=== PATIENT | male | born 1935 | race Two or more races ===

== ENCOUNTER 2016-10-06 06:38 | Inpatient (IN) | payer MEDICARE, MEDICAID ==
[~2016-10-06] VITALS: Ht 162.6 cm; Wt 66.7 kg
[2016-10-06] VITALS (26 sets, daily range): BP systolic 105–138; BP diastolic 56–92
[2016-10-06] MEDS ORDERED: methylPREDNISolone SOD SUCC 125 MG/2ML VIAL ONE (06:39)
[2016-10-06] MEDS ORDERED: IPRATROPIUM NEB FS 0.5 MG/2.5 ML AMPUL.NEB ONE (06:53)
[2016-10-06] MEDS ORDERED: ALBUTEROL FS 2.5 MG/3 ML VIAL.NEB ONE (06:53)
[2016-10-06] MEDS ORDERED: methylPREDNISolone SOD SUCC 125 MG/2ML VIAL IV ONE (07:00)
[2016-10-06] MEDS ORDERED: ALBUTEROL FS 2.5 MG/3 ML VIAL.NEB NEB ONE (07:00)
[2016-10-06] MEDS ORDERED: IPRATROPIUM NEB FS 0.5 MG/2.5 ML AMPUL.NEB NEB ONE (07:00)
[2016-10-06 07:09] LABS: BASOPHILS % (AUTO) 0.1 % (0.0-2.0); DIFF TOTAL % 100 %; EOSINOPHILS # (AUTO) 0.1 /CMM (0.0-0.7); EOSINOPHILS % (AUTO) 0.9 % (0.0-6.0); HEMATOCRIT 36 % (39-51); HEMOGLOBIN 11.7 g/dL (13.5-17.5); LYMPHOCYTES # (AUTO) 2.3 /CMM (0.8-4.8); LYMPHOCYTES % (AUTO) 17.2 % (20.0-44.0); MEAN CORPUSCULAR HEMOGLOBIN 26 PG (26.0-33.0); MEAN CORPUSCULAR HGB CONC 33 g/dl (31.0-36.0); MEAN CORPUSCULAR VOLUME 81 fL (80-96); MONOCYTES # (AUTO) 0.3 /CMM (0.1-1.30); MONOCYTES % (AUTO) 2.4 % (2.0-12.0); NEUTROPHILS # (AUTO) 10.5 /CMM (1.8-8.9); NEUTROPHILS % (AUTO) 79.4 % (43.0-81.0); PLATELET COUNT (AUTO) 229 /CMM (150-450); RED BLOOD CELL COUNT(AUTO) 4.45 MIL/uL (4.5-6.0); WHITE BLOOD COUNT (AUTO) 13.3 K/uL (4.3-11.0)
[2016-10-06 07:24] LABS: CALCIUM, SERUM 9.3 mg/dL (8.5-10.1); CREATININE 1.3 mg/dL (0.6-1.3); POTASSIUM 4.1 mmol/L (3.5-5.1)
[2016-10-06 07:29] LABS: INR 0.99 (0.87-1.13); PROTHROMBIN TIME 10.7 SECS (9.5-12.7)
[2016-10-06 07:40] LABS: ALBUMIN 3.6 g/dL (3.4-5.0); BILIRUBIN,DIRECT 0.2 mg/dL (0.0-0.2); BILIRUBIN,TOTAL 0.9 mg/dL (0.2-1.0); INDIRECT BILIRUBIN 0.7 mg/dL (0.0-1.1); TOTAL PROTEIN, SERUM 8.8 g/dL (6.4-8.2)
[2016-10-06 07:46] LABS: TROPONIN I 0.195 ng/mL (0.00-0.056)
[2016-10-06 08:24] LABS: LACTIC ACID 2.5 mmol/L (0.4-2.0)
[2016-10-06] MEDS ORDERED: CLOP75TA2 PO (08:24)
[2016-10-06] MEDS ORDERED: CARV6.252 PO (08:24)
[2016-10-06] MEDS ORDERED: TRAM50TA2 PO (08:24)
[2016-10-06] MEDS ORDERED: SIMV40TA5 PO (08:24)
[2016-10-06] MEDS ORDERED: FURO40TA5 PO (08:24)
[2016-10-06] MEDS ORDERED: METF500T4 PO (08:24)
[2016-10-06] MEDS ORDERED: LISI-603 PO (08:24)
[2016-10-06] MEDS ORDERED: LATA2.5D7 EACHEYE (08:24)
[2016-10-06] MEDS ORDERED: ASPI-991 PO (08:24)
[2016-10-06] MEDS ORDERED: LEVO88TA5 PO (08:24)
[2016-10-06] MEDS ORDERED: POTA8TAB8 PO (08:24)
[2016-10-06] MEDS ORDERED: CEFTRIAXONE 1GM BAG (ER ONLY) 50 ML IV ONE ×2 (08:30→08:56)
[2016-10-06] MEDS ORDERED: IOHEXOL-350 100 ML VIAL IV ONE (08:37)
[2016-10-06 08:40] LABS: *LACTIC ACID REFLEX FLAG YES
[2016-10-06] MEDS ORDERED: IV SET PRIMARY PUMP SET 1 EA INFUS.SET MC ONE (08:56)
[2016-10-06] MEDS ORDERED: ASPIRIN 325 MG TABLET ONE (09:24)
[2016-10-06] MEDS: AZITHROMYCIN 500 MG in IV D5W 250 ML IV ONE ×2 (09:25→09:30)
[2016-10-06] MEDS ORDERED: ASPIRIN 325 MG TABLET PO SCH (09:30)
[2016-10-06] MEDS ORDERED: ACETAMINOPHEN 325 MG TABLET PO PRN (12:00)
[2016-10-06] MEDS ORDERED: ONDANSETRON HCL/PF 4 MG/2 ML VIAL IVP PRN (12:00)
[2016-10-06] MEDS ORDERED: Z GUARD REMEDY 2 OZ OINT TP PRN (12:00)
[2016-10-06] MEDS: FUROSEMIDE 20 MG/2 ML VIAL IV ONE ×2 (12:00→12:35)
[2016-10-06] MEDS ORDERED: MAGNESIUM HYDROXIDE 30 ML UDC PO PRN (12:00)
[2016-10-06] MEDS ORDERED: MAG HYDROX/AL HYDROX/SIMETH 30 ML UDC PO PRN (12:00)
[2016-10-06] MEDS ORDERED: HYDROCODONE/APAP 5/325MG 1 EACH TABLET PO PRN (12:00)
[2016-10-06] MEDS ORDERED: TRAMADOL HCL 50 MG TABLET PO PRN (12:30)
[2016-10-06] MEDS ORDERED: DEXTROSE 50%-WATER 50 ML DISP.SYRIN IV PRN (13:00)
[2016-10-06] MEDS: FUROSEMIDE 20 MG/2 ML VIAL IV SCH (17:30)
[2016-10-06] MEDS: CARVEDILOL 6.25 MG TABLET PO SCH (17:31)
[2016-10-06] MEDS: BLOOD SUGAR DIAGNOSTIC 1 EACH STRIP VI SCH ×2 (17:31→21:02)
[2016-10-06] MEDS: *INSULIN REGULAR(HUMULIN R)HUM 100 UNIT/ML VIAL SQ PRN ×2 (17:40→21:11)
[2016-10-06] MEDS: INSULIN REGULAR, HUMAN 100 UNIT/ML 3 ML VIAL SQ PRN (19:03)
[2016-10-06] MEDS: SIMVASTATIN 40 MG TABLET PO SCH (21:02)
[2016-10-06] MEDS: ZOLPIDEM TARTRATE 5 MG TABLET PO PRN (21:02)
[2016-10-06] MEDS: LATANOPROST EYE DROP 0.005% 2.5 ML BOTTLE EACHEYE SCH (21:02)
[2016-10-06] MEDS ORDERED: INSULIN REGULAR, HUMAN 100 UNIT/ML 10 ML VIAL SQ ONE (21:30)
[2016-10-07] VITALS (15 sets, daily range): BP systolic 103–132; BP diastolic 52–76
[2016-10-07 05:12] LABS: BASOPHILS % (AUTO) 0.2 % (0.0-2.0); DIFF TOTAL % 100 %; HEMATOCRIT 30 % (39-51); HEMOGLOBIN 9.8 g/dL (13.5-17.5); LYMPHOCYTES % (AUTO) 13.9 % (20.0-44.0); MEAN CORPUSCULAR HEMOGLOBIN 27 PG (26.0-33.0); MEAN CORPUSCULAR HGB CONC 33 g/dl (31.0-36.0); MEAN CORPUSCULAR VOLUME 80 fL (80-96); MONOCYTES # (AUTO) 0.2 /CMM (0.1-1.30); MONOCYTES % (AUTO) 2.7 % (2.0-12.0); NEUTROPHILS # (AUTO) 6.2 /CMM (1.8-8.9); NEUTROPHILS % (AUTO) 83.2 % (43.0-81.0); PLATELET COUNT (AUTO) 198 /CMM (150-450); RED BLOOD CELL COUNT(AUTO) 3.68 MIL/uL (4.5-6.0); WHITE BLOOD COUNT (AUTO) 7.5 K/uL (4.3-11.0)
[2016-10-07 05:25] LABS: CALCIUM, SERUM 8.7 mg/dL (8.5-10.1); CREATININE 1.6 mg/dL (0.6-1.3); PHOSPHORUS 3.1 mg/dL (2.5-4.9); POTASSIUM 3.8 mmol/L (3.5-5.1)
[2016-10-07] MEDS: BLOOD SUGAR DIAGNOSTIC 1 EACH STRIP VI SCH ×4 (06:49→21:31)
[2016-10-07] MEDS: CARVEDILOL 6.25 MG TABLET PO SCH ×3 (08:19→16:26)
[2016-10-07] MEDS: LISINOPRIL (20MG) 20 MG TABLET PO SCH ×2 (08:19→08:26)
[2016-10-07] MEDS: POTASSIUM CHLORIDE 10 MEQ TABLET.SA PO SCH (08:25)
[2016-10-07] MEDS: FUROSEMIDE 20 MG/2 ML VIAL IV SCH ×2 (08:25→16:26)
[2016-10-07] MEDS: ASPIRIN EC 81 MG TABLET.DR PO SCH (08:25)
[2016-10-07] MEDS: LEVOTHYROXINE SODIUM 88 MCG TABLET PO SCH (08:26)
[2016-10-07] MEDS: INSULIN REGULAR, HUMAN 100 UNIT/ML 3 ML VIAL SQ PRN ×3 (08:29→17:09)
[2016-10-07] MEDS ORDERED: CLOPIDOGREL BISULFATE 75 MG TABLET PO SCH (09:00)
[2016-10-07] MEDS ORDERED: Medication Not On Formulary EA (Potassium Chloride 8 MEQ) PO SCH (09:00)
[2016-10-07] MEDS ORDERED: HEPARIN INFUSION/D5W 500 ML IV PRN (12:30)
[2016-10-07] MEDS ORDERED: IV SET PRIMARY PUMP SET 1 EA INFUS.SET MC ONE (12:32)
[2016-10-07] MEDS ORDERED: HEPARIN SODIUM, PORCINE 5000 UNITS/1 ML VIAL IV ONE ×2 (13:00→23:00)
[2016-10-07] MEDS: TICAGRELOR 90 MG TABLET PO SCH (16:26)
[2016-10-07] MEDS: SIMVASTATIN 40 MG TABLET PO SCH (21:30)
[2016-10-07] MEDS: ZOLPIDEM TARTRATE 5 MG TABLET PO PRN (21:31)
[2016-10-07] MEDS: *INSULIN REGULAR(HUMULIN R)HUM 100 UNIT/ML VIAL SQ PRN (21:31)
[2016-10-07] MEDS: LATANOPROST EYE DROP 0.005% 2.5 ML BOTTLE EACHEYE SCH (21:32)
[2016-10-07] MEDS ORDERED: HEPARIN SODIUM, PORCINE 5000 UNITS/1 ML VIAL ONE (23:02)
[2016-10-08] VITALS: BP 125/72
[2016-10-08 04:00] VITALS: BP 135/75
[2016-10-08 05:52] LABS: BASOPHILS % (AUTO) 0.6 % (0.0-2.0); DIFF TOTAL % 100 %; EOSINOPHILS # (AUTO) 0.1 /CMM (0.0-0.7); HEMATOCRIT 29 % (39-51); HEMOGLOBIN 9.7 g/dL (13.5-17.5); LYMPHOCYTES % (AUTO) 24.7 % (20.0-44.0); MEAN CORPUSCULAR HEMOGLOBIN 26 PG (26.0-33.0); MEAN CORPUSCULAR HGB CONC 33 g/dl (31.0-36.0); MEAN CORPUSCULAR VOLUME 80 fL (80-96); MONOCYTES # (AUTO) 0.5 /CMM (0.1-1.30); MONOCYTES % (AUTO) 5.7 % (2.0-12.0); NEUTROPHILS # (AUTO) 5.5 /CMM (1.8-8.9); PLATELET COUNT (AUTO) 207 /CMM (150-450); RED BLOOD CELL COUNT(AUTO) 3.69 MIL/uL (4.5-6.0); WHITE BLOOD COUNT (AUTO) 8.1 K/uL (4.3-11.0)
[2016-10-08 05:58] LABS: CALCIUM, SERUM 8.4 mg/dL (8.5-10.1); CREATININE 1.3 mg/dL (0.6-1.3); POTASSIUM 3.1 mmol/L (3.5-5.1)
[2016-10-08 08:00] VITALS: BP 135/71
[2016-10-08] MEDS: TICAGRELOR 90 MG TABLET PO SCH ×2 (09:28→16:42)
[2016-10-08] MEDS: POTASSIUM CHLORIDE 10 MEQ TABLET.SA PO SCH (09:29)
[2016-10-08] MEDS: LEVOTHYROXINE SODIUM 88 MCG TABLET PO SCH (09:29)
[2016-10-08] MEDS: ASPIRIN EC 81 MG TABLET.DR PO SCH (09:29)
[2016-10-08] MEDS: LISINOPRIL (20MG) 20 MG TABLET PO SCH (09:30)
[2016-10-08] MEDS: CARVEDILOL 6.25 MG TABLET PO SCH ×2 (09:31→16:41)
[2016-10-08] MEDS: BLOOD SUGAR DIAGNOSTIC 1 EACH STRIP VI SCH ×4 (09:32→21:46)
[2016-10-08] MEDS: FUROSEMIDE 20 MG/2 ML VIAL IV SCH ×2 (09:32→16:35)
[2016-10-08] MEDS: INSULIN REGULAR, HUMAN 100 UNIT/ML 3 ML VIAL SQ PRN ×2 (09:36→13:02)
[2016-10-08 12:00] VITALS: BP 132/75
[2016-10-08] MEDS ORDERED: HEPARIN INFUSION/D5W 500 ML IV PRN (14:30)
[2016-10-08] MEDS ORDERED: IV SET PRIMARY PUMP SET 1 EA INFUS.SET MC ONE (14:41)
[2016-10-08 16:00] VITALS: BP 134/72
[2016-10-08] MEDS ORDERED: POTASSIUM CHLORIDE 20 MEQ TAB.PRT.SR PO ONE (17:00)
[2016-10-08 20:00] VITALS: BP 143/80
[2016-10-08] MEDS ORDERED: ENOXAPARIN SODIUM 40 MG/0.4 ML DISP.SYRIN SQ SCH (21:00)
[2016-10-08] MEDS: LATANOPROST EYE DROP 0.005% 2.5 ML BOTTLE EACHEYE SCH (21:43)
[2016-10-08] MEDS: *INSULIN REGULAR(HUMULIN R)HUM 100 UNIT/ML VIAL SQ PRN (21:48)
[2016-10-08] MEDS: SIMVASTATIN 40 MG TABLET PO SCH (21:49)
[2016-10-08 23:24] LABS: PROTHROMBIN TIME 10.5 SECS (9.5-12.7)
[2016-10-08] MEDS ORDERED: HEPARIN SODIUM, PORCINE 5000 UNITS/1 ML VIAL ONE (23:47)
[2016-10-09] VITALS: BP 144/68
[2016-10-09] MEDS ORDERED: HEPARIN SODIUM, PORCINE 5000 UNITS/1 ML VIAL IV ONE
[2016-10-09 04:00] VITALS: BP 147/70
[2016-10-09 06:11] LABS: BASOPHILS % (AUTO) 0.3 % (0.0-2.0); DIFF TOTAL % 100 %; EOSINOPHILS # (AUTO) 0.2 /CMM (0.0-0.7); EOSINOPHILS % (AUTO) 2.9 % (0.0-6.0); HEMATOCRIT 33 % (39-51); LYMPHOCYTES % (AUTO) 36.7 % (20.0-44.0); MEAN CORPUSCULAR HEMOGLOBIN 26 PG (26.0-33.0); MEAN CORPUSCULAR HGB CONC 33 g/dl (31.0-36.0); MEAN CORPUSCULAR VOLUME 80 fL (80-96); MONOCYTES # (AUTO) 0.3 /CMM (0.1-1.30); MONOCYTES % (AUTO) 6.4 % (2.0-12.0); NEUTROPHILS # (AUTO) 2.9 /CMM (1.8-8.9); NEUTROPHILS % (AUTO) 53.7 % (43.0-81.0); PLATELET COUNT (AUTO) 242 /CMM (150-450); RED BLOOD CELL COUNT(AUTO) 4.15 MIL/uL (4.5-6.0); WHITE BLOOD COUNT (AUTO) 5.3 K/uL (4.3-11.0)
[2016-10-09] MEDS: BLOOD SUGAR DIAGNOSTIC 1 EACH STRIP VI SCH ×4 (06:54→21:06)
[2016-10-09] MEDS: INSULIN REGULAR, HUMAN 100 UNIT/ML 3 ML VIAL SQ PRN ×3 (06:56→17:24)
[2016-10-09 07:09] LABS: TROPONIN I 2.16 ng/mL (0.00-0.056)
[2016-10-09 07:15] LABS: ALBUMIN 3.1 g/dL (3.4-5.0); BILIRUBIN,TOTAL 0.4 mg/dL (0.2-1.0); CALCIUM, SERUM 8.6 mg/dL (8.5-10.1); CREATININE 1.5 mg/dL (0.6-1.3); PHOSPHORUS 4.4 mg/dL (2.5-4.9); POTASSIUM 4.2 mmol/L (3.5-5.1); TOTAL PROTEIN, SERUM 7.8 g/dL (6.4-8.2)
[2016-10-09 08:00] VITALS: BP 134/74
[2016-10-09] MEDS: POTASSIUM CHLORIDE 10 MEQ TABLET.SA PO SCH (08:59)
[2016-10-09] MEDS: LEVOTHYROXINE SODIUM 88 MCG TABLET PO SCH (08:59)
[2016-10-09] MEDS: CARVEDILOL 6.25 MG TABLET PO SCH ×2 (09:00→16:32)
[2016-10-09] MEDS: LISINOPRIL (20MG) 20 MG TABLET PO SCH (09:00)
[2016-10-09] MEDS: TICAGRELOR 90 MG TABLET PO SCH ×2 (09:10→16:32)
[2016-10-09] MEDS: ASPIRIN EC 81 MG TABLET.DR PO SCH (09:10)
[2016-10-09 12:00] VITALS: BP 134/74
[2016-10-09 16:00] VITALS: BP 129/72
[2016-10-09 20:00] VITALS: BP 121/69
[2016-10-09] MEDS: *INSULIN REGULAR(HUMULIN R)HUM 100 UNIT/ML VIAL SQ PRN (21:07)
[2016-10-09] MEDS: LATANOPROST EYE DROP 0.005% 2.5 ML BOTTLE EACHEYE SCH (21:08)
[2016-10-09] MEDS: SIMVASTATIN 40 MG TABLET PO SCH (21:08)
[2016-10-10 04:00] VITALS: BP 127/60
[2016-10-10] MEDS: BLOOD SUGAR DIAGNOSTIC 1 EACH STRIP VI SCH ×4 (06:30→22:41)
[2016-10-10] MEDS: INSULIN REGULAR, HUMAN 100 UNIT/ML 3 ML VIAL SQ PRN ×4 (06:32→22:44)
[2016-10-10 07:07] LABS: CALCIUM, SERUM 8.8 mg/dL (8.5-10.1); CREATININE 1.2 mg/dL (0.6-1.3); POTASSIUM 3.9 mmol/L (3.5-5.1)
[2016-10-10 07:21] LABS: BASOPHILS % (AUTO) 0.1 % (0.0-2.0); DIFF TOTAL % 100 %; EOSINOPHILS # (AUTO) 0.2 /CMM (0.0-0.7); HEMATOCRIT 32 % (39-51); HEMOGLOBIN 10.7 g/dL (13.5-17.5); LYMPHOCYTES # (AUTO) 2.1 /CMM (0.8-4.8); LYMPHOCYTES % (AUTO) 36.6 % (20.0-44.0); MEAN CORPUSCULAR HEMOGLOBIN 27 PG (26.0-33.0); MEAN CORPUSCULAR HGB CONC 33 g/dl (31.0-36.0); MEAN CORPUSCULAR VOLUME 81 fL (80-96); MONOCYTES # (AUTO) 0.4 /CMM (0.1-1.30); MONOCYTES % (AUTO) 6.6 % (2.0-12.0); NEUTROPHILS # (AUTO) 3.1 /CMM (1.8-8.9); NEUTROPHILS % (AUTO) 53.7 % (43.0-81.0); PLATELET COUNT (AUTO) 230 /CMM (150-450); RED BLOOD CELL COUNT(AUTO) 4.02 MIL/uL (4.5-6.0); WHITE BLOOD COUNT (AUTO) 5.8 K/uL (4.3-11.0)
[2016-10-10 07:45] LABS: ABG BASE EXCESS 1.2 mmol/L; ABG HCO3 25.8 mmol/L; ABG NOTIFIED WHOM RN; ABG PCO2 40.7 mmHg (35.0-45.0); ABG PO2 118.3 mmHg (75.0-100.0); ABG TOTAL HEMOGLOBIN 11.3 G/dL (13.5-18.0); ALLEN TEST PASSED; AaDO2 47.8 mmHg; O2Hb 96.6 % (94.0-97.0)
[2016-10-10 08:00] VITALS: BP 139/74
[2016-10-10] MEDS: ASPIRIN EC 81 MG TABLET.DR PO SCH (08:16)
[2016-10-10] MEDS: LEVOTHYROXINE SODIUM 88 MCG TABLET PO SCH (08:16)
[2016-10-10] MEDS: POTASSIUM CHLORIDE 10 MEQ TABLET.SA PO SCH (08:16)
[2016-10-10] MEDS: LISINOPRIL (20MG) 20 MG TABLET PO SCH (08:18)
[2016-10-10] MEDS: CARVEDILOL 6.25 MG TABLET PO SCH ×2 (08:19→17:23)
[2016-10-10] MEDS: TICAGRELOR 90 MG TABLET PO SCH ×2 (08:20→17:23)
[2016-10-10 16:00] VITALS: BP 145/75
[2016-10-10 20:00] VITALS: BP 120/65
[2016-10-10] MEDS: LATANOPROST EYE DROP 0.005% 2.5 ML BOTTLE EACHEYE SCH (22:38)
[2016-10-10] MEDS: SIMVASTATIN 40 MG TABLET PO SCH (22:38)
[2016-10-11 04:00] VITALS: BP 114/48
[2016-10-11] MEDS: BLOOD SUGAR DIAGNOSTIC 1 EACH STRIP VI SCH ×3 (06:31→17:07)
[2016-10-11] MEDS: INSULIN REGULAR, HUMAN 100 UNIT/ML 3 ML VIAL SQ PRN ×3 (06:32→17:08)
[2016-10-11 08:00] VITALS: BP_SYST 133; BP_SYST 149; BP_DIAS 68; BP_DIAS 80
[2016-10-11] MEDS: ASPIRIN EC 81 MG TABLET.DR PO SCH (08:39)
[2016-10-11] MEDS: POTASSIUM CHLORIDE 10 MEQ TABLET.SA PO SCH (08:39)
[2016-10-11] MEDS: LEVOTHYROXINE SODIUM 88 MCG TABLET PO SCH (08:39)
[2016-10-11] MEDS: LISINOPRIL (20MG) 20 MG TABLET PO SCH (08:40)
[2016-10-11] MEDS: CARVEDILOL 6.25 MG TABLET PO SCH ×2 (08:40→17:03)
[2016-10-11] MEDS: TICAGRELOR 90 MG TABLET PO SCH ×2 (08:43→17:03)
[2016-10-11] MEDS ORDERED: FUROSEMIDE 40 MG TABLET PO SCH (10:00)
[2016-10-11 12:00] VITALS: BP 133/68
[2016-10-11] MEDS ORDERED: TICA90TA PO (16:10)
[2016-10-11] MEDS ORDERED: *INS REG SQ (16:10)
[2016-10-11] MEDS ORDERED: FURO40TA5 PO (16:10)
[2016-10-11] MEDS ORDERED: INSU100V28 SQ (16:10)
[2016-10-11 20:00] VITALS: BP 133/70
== END 2016-10-11 21:00 | DRG 280 ==
LOC: ER 06:42 → ICU 08:18 → TELE-TD 10-07 04:50 → TELE1 10-08 12:16 → MEDSG1 10-09 09:20
PROVIDERS: ADMIT Family Medicine; ATTEND Family Medicine
PROC: 5A09357 Assistance with Respiratory Ventilation, Less than 24 Consecutive Hours, Continuous Positive Airway Pressure (ICD-10-PCS; principal; 2016-10-06)
DX: I13.0 Hypertensive heart and chronic kidney disease with heart failure and stage 1 through stage 4 chronic kidney disease, or unspecified chronic kidney disease (principal); I50.43 Acute on chronic combined systolic (congestive) and diastolic (congestive) heart failure; I21.4 Non-ST elevation (NSTEMI) myocardial infarction; J96.01 Acute respiratory failure with hypoxia; N17.0 Acute kidney failure with tubular necrosis; E87.2 Acidosis; H40.9 Unspecified glaucoma; I25.10 Atherosclerotic heart disease of native coronary artery without angina pectoris; N18.9 Chronic kidney disease, unspecified; D64.9 Anemia, unspecified; Z95.5 Presence of coronary angioplasty implant and graft; E78.5 Hyperlipidemia, unspecified; E03.9 Hypothyroidism, unspecified; E11.22 Type 2 diabetes mellitus with diabetic chronic kidney disease; I25.2 Old myocardial infarction; I73.9 Peripheral vascular disease, unspecified; I35.0 Nonrheumatic aortic (valve) stenosis; M47.814 Spondylosis without myelopathy or radiculopathy, thoracic region
CPT/HCPCS: 36415; 36600; 71010-TC; 80048-TC; 80053-TC; 80061-TC; 80076-TC; 82803-TC; 82962-TC; 83605-TC; 83735-TC; 83880; 84100-TC; 84484-TC; 85025-TC; 85730-TC; 87040-TC; 87081-TC; 94799-TC; A4606; J0456; J0696; J1644; J1815; J1940; J2930; J7060; Q9967; Z7610

== ENCOUNTER 2017-09-08 09:21 | Inpatient (IN) | payer MEDICARE, MEDICAID ==
[~2017-09-08] VITALS: Ht 162.6 cm; Wt 65.3 kg
[~2017-09-08 09:21] MED LIST: *INS REG SQ; ASPI-1152 PO; CARV6.252 PO; CLOP75TA15 PO; FURO40TA5 PO; INSU100V28 SQ; LATA2.5D7 EACHEYE; LEVO88TA5 PO; LISI-603 PO; POTA8TAB8 PO; SIMV40TA5 PO; TICA90TA PO; TRAM50TA2 PO
--- NOTE | 2017-09-08 09:40 | NUR ---
PATIENT TO ED DT SOB AND DYSURIA. PATIENT RECEIVED AAO4. IN NO APPARENT DISTRESS. AFEBRILE. VSS. CO DYSURIA. PATIENT ABLE TO GIVE URINE SAMPLE.
[2017-09-08 11:32] LABS: BASOPHILS # (AUTO) 0.4 /CMM (0.0-0.2); BASOPHILS % (AUTO) 3.2 % (0.0-2.0); HEMATOCRIT 33 % (39-51); HEMOGLOBIN 11.2 g/dL (13.5-17.5); LYMPHOCYTES # (AUTO) 1.3 /CMM (0.8-4.8); LYMPHOCYTES % (AUTO) 10.4 % (20.0-44.0); MEAN CORPUSCULAR HEMOGLOBIN 28 PG (26.0-33.0); MEAN CORPUSCULAR HGB CONC 34 g/dl (31.0-36.0); MEAN CORPUSCULAR VOLUME 80 fL (80-96); MONOCYTES # (AUTO) 0.7 /CMM (0.1-1.30); MONOCYTES % (AUTO) 5.1 % (2.0-12.0); NEUTROPHILS # (AUTO) 10.4 /CMM (1.8-8.9); NEUTROPHILS % (AUTO) 81.3 % (43.0-81.0); PLATELET COUNT (AUTO) 163 /CMM (150-450); RDW COEFFICIENT OF VARIATION 19.5 (11.5-15.0); RED BLOOD CELL COUNT(AUTO) 4.09 MIL/uL (4.5-6.0); WHITE BLOOD COUNT (AUTO) 12.8 K/uL (4.3-11.0)
[2017-09-08 11:46] LABS: CALCIUM, SERUM 8.9 mg/dL (8.5-10.1); CARBON DIOXIDE 23 mmol/L (21-32); CHLORIDE 104 mmol/L (98-107); CREATININE 1.7 mg/dL (0.6-1.3); GLUCOSE 167 mg/dL (74-106); POTASSIUM 3.1 mmol/L (3.5-5.1); SODIUM SERUM 138 mmol/L (136-145); UREA NITROGEN, BLOOD 28 mg/dL (7-18)
[2017-09-08 11:55] LABS: TROPONIN I 0.543 ng/mL (0.00-0.056)
[2017-09-08 11:59] LABS: ALANINE AMINOTRANSFERASE 9 U/L (12-78); ALBUMIN 3.8 g/dL (3.4-5.0); ALKALINE PHOSPHATASE 81 U/L (46-116); ASPARTATE AMINOTRANSFERASE 20 U/L (15-37); B-TYPE NATRIURETIC PEPTIDE 9588 PG/ML (0-125); BILIRUBIN,DIRECT 0.2 mg/dL (0.0-0.2); BILIRUBIN,TOTAL 1.3 mg/dL (0.2-1.0); TOTAL PROTEIN, SERUM 8.4 g/dL (6.4-8.2)
[2017-09-08] MEDS ORDERED: CARV3.122 PO (12:10)
[2017-09-08] MEDS ORDERED: TICA90TA PO (12:10)
[2017-09-08] MEDS ORDERED: ASPIRIN 81 MG TAB.CHEW ONE ×2 (12:10→12:44)
[2017-09-08] MEDS ORDERED: SACU1TAB7 PO (12:11)
[2017-09-08] MEDS ORDERED: SITA50TA PO (12:11)
[2017-09-08] MEDS ORDERED: ALLO100T PO (12:11)
[2017-09-08] MEDS ORDERED: GLIM2TAB2 PO (12:11)
[2017-09-08] MEDS ORDERED: ASPIRIN 81 MG TAB.CHEW PO ONE (12:30)
--- NOTE | 2017-09-08 12:33 | NUR ---
AWAITING FOR ASPIRIN TO BE RESTOCK
--- NOTE | 2017-09-08 12:45 | NUR ---
CALLED [employer] OFFICE RUNNER WAS PAGED.
[2017-09-08 12:57] LABS: APPEARANCE,URINE Clear (CLEAR); BILIRUBIN,URINE Negative (NEGATIVE); BLOOD, URINE Small Ery/uL (NEGATIVE); COLOR,URINE Yellow (YELLOW); KETONES,URINE 15 (NEGATIVE); LEUKOCYTE ESTERASE ,URINE Trace (NEGATIVE); NITRITE, URINE Negative (NEGATIVE); PH,URINE 5.5 (5.0-8.0); PROTEIN,URINE 100 mg/dl (NEGATIVE); UGLUCOSE Negative (NEGATIVE); UROBILINOGEN,URINE 0.2 EU/dL (0.2)
--- NOTE | 2017-09-08 13:06 | NUR ---
CALLED [facility] ADVANCED MANAGER WAS REPAGED.
[2017-09-08 13:07] LABS: BACTERIA,URINE Few /HPF (None Seen); RBC,URINE 0-2 /HPF (0-2); SQUAMOUS EPITHELIAL CELL,UR Few /HPF (None Seen)
[2017-09-08] MEDS ORDERED: MAGNESIUM HYDROXIDE 30 ML UDC PO PRN (16:00)
[2017-09-08] MEDS ORDERED: HYDROCODONE/APAP 5/325MG 1 EACH TABLET PO PRN (16:00)
[2017-09-08] MEDS ORDERED: MAG HYDROX/AL HYDROX/SIMETH 30 ML UDC PO PRN (16:00)
[2017-09-08] MEDS ORDERED: Z GUARD REMEDY 2 OZ OINT TP PRN (16:00)
[2017-09-08] MEDS ORDERED: ACETAMINOPHEN 325 MG TABLET PO PRN (16:00)
[2017-09-08] MEDS ORDERED: ONDANSETRON HCL/PF 4 MG/2 ML VIAL IVP PRN (16:00)
[2017-09-08] MEDS: CEFTRIAXONE 1 G in IV D5W 50 ML IV SCH (17:01)
--- NOTE | 2017-09-08 17:04 | NUR ---
326-1 TELE NURSE MATEO
--- NOTE | 2017-09-08 17:12 | NUR ---
REPORT GIVEN TO THERESA HURTADO FOR GARY
--- NOTE | 2017-09-08 17:18 | NUR ---
PATIENT TRANSPORTED TO TELE. S
--- NOTE | 2017-09-08 17:20 | NUR ---
TELE ADMIT FROM ER AFTER REPORT RECEIVED FROM NANO CARDENAS. PATIENT ORIENTED TO PRIMARY RN, UNIT, ROOM, BED, AND UNIT POLICIES REGARDING PATIENT CARE AND VISITING HOURS. PATIENT NOW ON CONTINUOUS TELEMETRY MONITORING; SR 88. PATIENT PLACED ON BEDSIDE 02, WEIGHED BY BEDSCALE AND ENCOURAGED TO CALL IF THEY NEED SOMETHING. ALL QUESTIONS AND CONCERNS ADDRESSED, PATIENT VERBALIZED UNDERSTANDING.
[2017-09-08] MEDS ORDERED: MORPHINE SULFATE INJ 4 MG/ML DISP.SYRIN IV PRN (17:30)
[2017-09-08] MEDS ORDERED: DEXTROSE 50%-WATER 50 ML DISP.SYRIN IV PRN (18:30)
[2017-09-08] MEDS ORDERED: HEPARIN SODIUM, PORCINE 5000 UNITS/1 ML VIAL IV ONE (19:00)
--- NOTE | 2017-09-08 19:36 | NUR ---
CHANGE OF SHIFT REPORT PT RESTING COMFORTABLY IN BED. NO S/S OR C/O PAIN OR DISTRESS NOTED. SIDE RAILS UP X2, CALL LIGHT LEFT WITHIN REACH. PT KEPT CLEAN, DRY, AND COMFORTABLE. NO SIGNIFICANT CHANGES SINCE ADMISSION. REPORT GIVEN TO WING CARDENAS.
[2017-09-08 20:00] VITALS: BP 131/79
[2017-09-08 21:41] LABS: INR 1.04 (0.87-1.13); PROTHROMBIN TIME 10.8 SECS (9.5-12.7)
[2017-09-08] MEDS: HEPARIN INFUSION/D5W 500 ML IV PRN (21:53)
[2017-09-08] MEDS: BLOOD SUGAR DIAGNOSTIC 1 EACH STRIP IN SCH (22:23)
[2017-09-08] MEDS: INSULIN REGULAR, HUMAN 100 UNIT/ML 3 ML VIAL SQ PRN (22:27)
--- NOTE | 2017-09-08 22:28 | NUR ---
HOSPICE RN NOTES: BLOOD SUGAR WAS 91. NO INSULIN WAS ADMINISTERED. WILL CONTINUE TO MONITOR.
[2017-09-08] MEDS ORDERED: NITROGLYCERIN 0.4 MG/TAB BOTTLE SL PRN (23:00)
[2017-09-08] MEDS ORDERED: POTASSIUM CHLORIDE 20 MEQ TAB.PRT.SR PO ONE ×2 (23:00→23:09)
[2017-09-08] MEDS ORDERED: SIMVASTATIN 40 MG TABLET ONE (23:08)
[2017-09-08] MEDS ORDERED: SIMVASTATIN 40 MG TABLET PO ONE (23:30)
[2017-09-09] VITALS: BP 136/79
--- NOTE | 2017-09-09 00:16 | NUR ---
LEAD JAVA DEVELOPER ARCHITECT NOTES: PAGED DEMURRAGE WORKER DOCTOR IN REGARDS TO CRITICAL VALUE. AWAITING FOR CALL BACK.
--- NOTE | 2017-09-09 01:07 | NUR ---
INFORMATION MANAGEMENT SPECIALIST NOTES: SPOKE TO DR. JACINTO AND INFORMED HIM OF TROPONIN 1.145 ; INFORMED HIM THAT PT IS ON HEPARIN DRIP WELL. JUST ORDERING ANOTHER TROPONIN Q6HRS X 3.
[2017-09-09 04:00] VITALS: BP 129/74
[2017-09-09 04:08] LABS: BASOPHILS # (AUTO) 0.2 /CMM (0.0-0.2); BASOPHILS % (AUTO) 1.5 % (0.0-2.0); EOSINOPHILS # (AUTO) 0.1 /CMM (0.0-0.7); EOSINOPHILS % (AUTO) 0.8 % (0.0-6.0); HEMATOCRIT 28 % (39-51); HEMOGLOBIN 9.8 g/dL (13.5-17.5); LYMPHOCYTES # (AUTO) 1.8 /CMM (0.8-4.8); LYMPHOCYTES % (AUTO) 17.6 % (20.0-44.0); MEAN CORPUSCULAR HEMOGLOBIN 28 PG (26.0-33.0); MEAN CORPUSCULAR HGB CONC 34 g/dl (31.0-36.0); MEAN CORPUSCULAR VOLUME 81 fL (80-96); MONOCYTES # (AUTO) 0.5 /CMM (0.1-1.30); NEUTROPHILS # (AUTO) 7.5 /CMM (1.8-8.9); NEUTROPHILS % (AUTO) 75.1 % (43.0-81.0); PLATELET COUNT (AUTO) 146 /CMM (150-450); RDW COEFFICIENT OF VARIATION 20.8 (11.5-15.0); RED BLOOD CELL COUNT(AUTO) 3.51 MIL/uL (4.5-6.0)
--- NOTE | 2017-09-09 04:34 | NUR ---
ACID TANK CLEANER NOTES: APTT WAS 50. NO CHANGES IN HEPARIN DRIP.
[2017-09-09 04:54] LABS: CALCIUM, SERUM 8.7 mg/dL (8.5-10.1); CARBON DIOXIDE 24 mmol/L (21-32); CHLORIDE 104 mmol/L (98-107); CREATININE 1.8 mg/dL (0.6-1.3); GLUCOSE 124 mg/dL (74-106); MAGNESIUM 2.2 mg/dL (1.8-2.4); PHOSPHORUS 3.4 mg/dL (2.5-4.9); POTASSIUM 3.4 mmol/L (3.5-5.1); SODIUM SERUM 140 mmol/L (136-145); UREA NITROGEN, BLOOD 33 mg/dL (7-18)
[2017-09-09 05:28] LABS: CHOLESTEROL 138 mg/dL (<200); HDL CHOLESTEROL 58 mg/dL (40-60); LDL 76 mg/dL (0-99); THYROID STIMULATING HORMONE 1.961 uIU/mL (0.358-3.74); TRIGLYCERIDES 57 mg/dL (30-150)
[2017-09-09] MEDS: BLOOD SUGAR DIAGNOSTIC 1 EACH STRIP IN SCH ×4 (06:19→21:29)
[2017-09-09] MEDS: INSULIN REGULAR, HUMAN 100 UNIT/ML 3 ML VIAL SQ PRN ×3 (06:53→21:31)
--- NOTE | 2017-09-09 06:56 | NUR ---
ELECTRICAL DESIGN ENGINEER NOTES: BLOOD SUGAR WAS 132; 2 UNITS OF INSULIN WAS ADMINISTERED. WILL CONTINUE TO MONITOR PT.
--- NOTE | 2017-09-09 07:30 | NUR ---
TELE/RN OPENING NOTE RECEIVED PATIENT IN BED AWAKE. ALERT AND ORIENTED X4. RESPIRATION REGULAR AND UNLABORED. DENIES SOB, PAIN AT THIS TIME. ON TELE MONITORING SHOWING SR AT 96 WITH BBB. IN NO APPARENT DISTRESS. LEFT HAND G 20 PATENT, HEPARIN DRIP INFUSING PROPERLY. NO S/SX INFILTRATION NOTED. SIDE RAIL X2 UP. BED LOW AND LOCKED. CALL LIGHT WITHIN REACH. WILL CONTINUE CURRENT POC.
--- NOTE | 2017-09-09 07:30 | NUR ---
SECURITY TECHNICIAN CLOSING NOTES: ALL NEEDS WERE ATTENDED AND ANTICIPATED FOR. PT ON 2LPM VIA NC AND IS TOLERATING WELL. PT ASLEEP AT THIS TIME. PT HAS L HAND #20G AND IS PATENT AND INTACT. CURRENTLY ON HEPARIN DRIP AT 975 UNITS/HR. PT IS A/OX3. PT ON TELE BOX AND READING SHOWS SR 89 WITH BBB. CALL LIGHT WITHIN PT'S REACH. BED KEPT IN LOW, LOCKED POSITION, AND SIDE RAILS X 2UP. WILL ENDORSE TO AM NURSE FOR GARY.
[2017-09-09 08:00] VITALS: BP 15/79
[2017-09-09] MEDS: LEVOTHYROXINE SODIUM 88 MCG TABLET PO SCH (08:28)
[2017-09-09] MEDS: ALLOPURINOL 100 MG TABLET PO SCH (08:29)
[2017-09-09] MEDS: GLIMEPIRIDE 1 MG TABLET PO SCH (08:29)
[2017-09-09] MEDS: LINAGLIPTIN 5 MG TABLET PO SCH (08:29)
[2017-09-09] MEDS: ASPIRIN EC 81 MG TABLET.DR PO SCH (08:29)
[2017-09-09 08:30] VITALS: BP 145/79
[2017-09-09] MEDS: CARVEDILOL 3.125 MG TABLET PO SCH ×2 (08:30→21:30)
[2017-09-09 09:27] LABS: IRON, SERUM 15 ug/dl (50-175); TOTAL IRON BINDING CAPACITY 268 ug/dl (250-450)
--- NOTE | 2017-09-09 09:31 | NUR ---
TELE/RN MED BRILINTA MEDICATION BRILINTA SCHEDULED AT 0900 IS NOT VERIFIED BY PHARM YET.
[2017-09-09 09:34] LABS: FERRITIN 172 ng/mL (8-388)
[2017-09-09] MEDS ORDERED: POTASSIUM CHLORIDE 10 MEQ TABLET.SA PO ONE (11:00)
[2017-09-09] MEDS: TICAGRELOR 90 MG PO SCH ×2 (11:34→16:58)
--- NOTE | 2017-09-09 12:16 | NUR ---
MS/RN TROPONIN 1153 RECEIVED A CALL FROM LAB TROPONIN LEVEL OF 1.068. 1205 PHILLIP NORTON MADE AWARE WITH NO NEW ORDER. THE PATIENT DENIES ANY PAIN/DISCOMFORT. RESPIRATION REGULAR AND UNLABORED. DENIES SOB. IN NO APPARENT DISTRESS. WILL CONTINUE TO MONITOR.
[2017-09-09 16:00] VITALS: BP 134/77
[2017-09-09] MEDS: CEFTRIAXONE 1 G in IV D5W 50 ML IV SCH (16:58)
--- NOTE | 2017-09-09 19:01 | NUR ---
CLOSING NOTE PATEIN IN BED AWAKE. ALERT AND ORIENTED X4. DENIES SOB, PAIN AT THIS TIME. RESPIRATION REGULAR AND UNLABORED. IN NO APPARENT DISTRESS. SIDE RAIL UP X2. BED LOW AND LOCKED. CALL LIGHT WITHIN REACH. WILL ENDORSE TO DIRECTOR OF SCIENCE.
[2017-09-09 20:00] VITALS: BP 134/73
[2017-09-09] MEDS: LATANOPROST EYE DROP 0.005% 2.5 ML BOTTLE EACHEYE SCH (21:32)
[2017-09-09] MEDS: SIMVASTATIN 40 MG TABLET PO SCH (21:37)
[2017-09-09] MEDS: HEPARIN INFUSION/D5W 500 ML IV PRN (22:50)
[2017-09-10] MEDS: BLOOD SUGAR DIAGNOSTIC 1 EACH STRIP IN SCH ×4 (06:23→21:49)
[2017-09-10] MEDS: INSULIN REGULAR, HUMAN 100 UNIT/ML 3 ML VIAL SQ PRN ×3 (06:24→21:48)
--- NOTE | 2017-09-10 06:42 | NUR ---
PATIENT IN BED, AWAKE AND ALERT, NO SOB, NO DISTRESS, NO COMPLAIN OF PAIN, NO BLEEDING NOTED, ON CONTINUOUS HEPARIN DRIP. NO ADVERSE CHANGE OF CONDITION DURING SHIFT, ALL NEEDS ATTENDED, CALL LIGHT WITHIN REACH.
--- NOTE | 2017-09-10 07:48 | NUR ---
MS/RN OPENING NOTE PATIENT IN BED IN STABLE CONDITION. A/O X 3. NO SIGNS OF ACUTE DISTRESS. NO COMPLAIN OF PAIN OR DISCOMFORT. ON HEPARIN DRIP TOLERATING WELL. ALL NEEDS ATTENDED TO. CALL LIGHT WITHIN REACH. WILL CONTINUE TO MONITOR TO ENSURE SAFETY.
[2017-09-10 08:00] VITALS: BP 142/87
[2017-09-10 08:01] LABS: BASOPHILS % (AUTO) 0.2 % (0.0-2.0); EOSINOPHILS % (AUTO) 0.1 % (0.0-6.0); HEMATOCRIT 32 % (39-51); HEMOGLOBIN 10.6 g/dL (13.5-17.5); LYMPHOCYTES # (AUTO) 1.1 /CMM (0.8-4.8); LYMPHOCYTES % (AUTO) 16.8 % (20.0-44.0); MEAN CORPUSCULAR HEMOGLOBIN 28 PG (26.0-33.0); MEAN CORPUSCULAR HGB CONC 34 g/dl (31.0-36.0); MEAN CORPUSCULAR VOLUME 82 fL (80-96); MONOCYTES # (AUTO) 0.4 /CMM (0.1-1.30); MONOCYTES % (AUTO) 5.3 % (2.0-12.0); NEUTROPHILS # (AUTO) 5.2 /CMM (1.8-8.9); NEUTROPHILS % (AUTO) 77.6 % (43.0-81.0); PLATELET COUNT (AUTO) 138 /CMM (150-450); RDW COEFFICIENT OF VARIATION 20.1 (11.5-15.0); RED BLOOD CELL COUNT(AUTO) 3.84 MIL/uL (4.5-6.0); WHITE BLOOD COUNT (AUTO) 6.7 K/uL (4.3-11.0)
--- NOTE | 2017-09-10 08:27 | NUR ---
MS/RN HIGH TROPONIN RECEIVED CALL FROM LAB WITH TROPONIN LEVEL OF 1.037H. DR LANE NOTIFIED.
[2017-09-10 08:40] LABS: TROPONIN I 1.037 ng/mL (0.00-0.056)
[2017-09-10 08:43] LABS: ALANINE AMINOTRANSFERASE 28 U/L (12-78); ALBUMIN 3.3 g/dL (3.4-5.0); ALKALINE PHOSPHATASE 106 U/L (46-116); ASPARTATE AMINOTRANSFERASE 43 U/L (15-37); BILIRUBIN,TOTAL 0.9 mg/dL (0.2-1.0); CALCIUM, SERUM 8.9 mg/dL (8.5-10.1); CARBON DIOXIDE 23 mmol/L (21-32); CHLORIDE 102 mmol/L (98-107); CREATININE 1.7 mg/dL (0.6-1.3); GLUCOSE 127 mg/dL (74-106); MAGNESIUM 2.4 mg/dL (1.8-2.4); PHOSPHORUS 3.7 mg/dL (2.5-4.9); POTASSIUM 3.6 mmol/L (3.5-5.1); SODIUM SERUM 140 mmol/L (136-145); TOTAL PROTEIN, SERUM 8.3 g/dL (6.4-8.2); UREA NITROGEN, BLOOD 32 mg/dL (7-18)
[2017-09-10] MEDS: HEPARIN INFUSION/D5W 500 ML IV PRN (09:19)
[2017-09-10] MEDS: TICAGRELOR 90 MG PO SCH ×2 (09:21→17:11)
[2017-09-10] MEDS: ASPIRIN EC 81 MG TABLET.DR PO SCH (09:22)
[2017-09-10] MEDS: LEVOTHYROXINE SODIUM 88 MCG TABLET PO SCH (09:22)
[2017-09-10] MEDS: CARVEDILOL 3.125 MG TABLET PO SCH ×2 (09:22→21:37)
[2017-09-10] MEDS: LINAGLIPTIN 5 MG TABLET PO SCH (09:22)
[2017-09-10] MEDS: GLIMEPIRIDE 1 MG TABLET PO SCH (09:22)
[2017-09-10] MEDS: ALLOPURINOL 100 MG TABLET PO SCH (09:22)
[2017-09-10] MEDS: NITROGLYCERIN 30 GM TUBE TP SCH ×2 (12:07→21:37)
[2017-09-10 12:50] LABS: ABG BASE EXCESS 0.7 mmol/L; ABG OXYGEN SATURATION 94.8 % (92.0-98.5); ABG PCO2 28.8 mmHg (35.0-45.0); ABG PH 7.515 (7.350-7.450); ABG PO2 74.6 mmHg (75.0-100.0); AaDO2 91.1 mmHg; MetHb 0.2 % (0.0-1.5); O2Hb 93.7 % (94.0-97.0); SITE, ABG Right Radial; VENT MODE, BG 2L N/C
[2017-09-10 16:00] VITALS: BP 144/86
--- NOTE | 2017-09-10 16:32 | NUR ---
MS/RN SPOKE WITH PHILLIP ZALDIVAR SPOKE WITH PHILLIP ZALDIVAR AND RELAYED PATIENT'S ABG'S RESULT, TROPONIN, CXR AND EKG RESULTS. PER PHILLIP ZALDIVAR HE WILL PUT IN ORDERS.
[2017-09-10] MEDS ORDERED: LEVOFLOXACIN 500 MG /D5W 100ML 500 MG in PREMIX 1 EA IV ONE (17:00)
[2017-09-10] MEDS ORDERED: FUROSEMIDE 40 MG/4 ML VIAL IV ONE (17:00)
--- NOTE | 2017-09-10 19:03 | NUR ---
MS/RN CLOSING NOTE PATIENT DOWNSTAIRS OF NM VENTILATION PERFUSION TEST. A/O X 4. LEVAQUIN IV DUE AT 1700, UNABLE TO HANG THE MEDICATION SECONDARY TO PATIENT DOWN FOR PROCEDURE, WILL ENDORSE TO NEXT SHIFT FOR CONTINUITY OF CARE.
--- NOTE | 2017-09-10 19:27 | NUR ---
NM: LUNG VQ WAS COMPLETED. TECH:RB.
--- NOTE | 2017-09-10 19:45 | NUR ---
MS RN NOTE: PATIENT RESTING IN BED, NO ACUTE DISTRESS NOTED. BREATHING EVEN AND UNLABORED, NO SOB NOTED AT THIS TIME. 0XYGEN 2 LPM VIA NC IN PLACE. IV TO LEFT HAND IN PLACE. IV TO RFA IN PLACE, INFUSING HEPARIN DRIP AT 1075 UNITS/HR, PER PROTOCOL. NO S/S OF HYPER/HYPOGLYCEMIA NOTED. BED LOCKED AND IN LOWEST POSITION, CALL LIGHT IN REACH. WILL CONTINUE TO MONITOR.
[2017-09-10] MEDS: SIMVASTATIN 40 MG TABLET PO SCH (21:37)
[2017-09-10] MEDS: LATANOPROST EYE DROP 0.005% 2.5 ML BOTTLE EACHEYE SCH (21:49)
[2017-09-10 21:55] VITALS: BP 122/61
--- NOTE | 2017-09-10 22:45 | NUR ---
MS RN NOTE: PATIENT TROPONIN LEVEL ELEVATED AT 1.0779, PATIENT DENIES ANY CHEST PAIN OR DISCOMFORT. INFORMED MANAGER ONLINE MD, DR. JACINTO, NO NEW ORDERS AT THIS TIME AND TO CONTINUE WITH HEPARIN DRIP ORDERED PER PROTOCOL. PATIENT BLOOD SUGAR LEVEL 250 MG/DL, PATIENT TO RECEIVE 4 UNITS OF INSULIN PER SLIDING SCALE. NO S/S OF HYPERGLYCEMIA NOTED. WILL CONTINUE TO MONITOR.
[2017-09-11] MEDS: HEPARIN INFUSION/D5W 500 ML IV PRN (01:13)
--- NOTE | 2017-09-11 07:10 | NUR ---
MS RN NOTE: PATIENT RESTING IN BED, NO ACUTE DISTRESS NOTED. BREATHING EVEN AND UNLABORED, NO SOB NOTED AT THIS TIME. 0XYGEN 2 LPM VIA NC IN PLACE. IV TO LEFT HAND IN PLACE. IV TO RFA IN PLACE, INFUSING HEPARIN DRIP AT 1075 UNITS/HR, PER PROTOCOL. PATIENT BLOOD SUGAR LEVEL 141 MG/DL, TO RECEIVE 2 UNITS OF INSULIN PER SLIDING SCALE, NO S/S OF HYPER/HYPOGLYCEMIA NOTED. PTT RESULTS STILL NOT IN SYSTEM. BED LOCKED AND IN LOWEST POSITION, CALL LIGHT IN REACH. WILL ENDORSE TO DAY NURSE TO CONTINUE WITH PLAN OF CARE.
[2017-09-11] MEDS: BLOOD SUGAR DIAGNOSTIC 1 EACH STRIP IN SCH ×4 (07:16→22:00)
[2017-09-11 07:56] LABS: BASOPHILS % (AUTO) 0.3 % (0.0-2.0); EOSINOPHILS % (AUTO) 0.9 % (0.0-6.0); HEMATOCRIT 26 % (39-51); HEMOGLOBIN 8.9 g/dL (13.5-17.5); LYMPHOCYTES # (AUTO) 1.2 /CMM (0.8-4.8); LYMPHOCYTES % (AUTO) 27.1 % (20.0-44.0); MEAN CORPUSCULAR HEMOGLOBIN 28 PG (26.0-33.0); MEAN CORPUSCULAR HGB CONC 35 g/dl (31.0-36.0); MEAN CORPUSCULAR VOLUME 81 fL (80-96); MONOCYTES # (AUTO) 0.5 /CMM (0.1-1.30); MONOCYTES % (AUTO) 10.2 % (2.0-12.0); NEUTROPHILS # (AUTO) 2.8 /CMM (1.8-8.9); NEUTROPHILS % (AUTO) 61.5 % (43.0-81.0); PLATELET COUNT (AUTO) 132 /CMM (150-450); RDW COEFFICIENT OF VARIATION 19.7 (11.5-15.0); RED BLOOD CELL COUNT(AUTO) 3.19 MIL/uL (4.5-6.0); WHITE BLOOD COUNT (AUTO) 4.5 K/uL (4.3-11.0)
[2017-09-11 08:00] VITALS: BP 124/71
[2017-09-11 08:30] LABS: CALCIUM, SERUM 8.3 mg/dL (8.5-10.1); CARBON DIOXIDE 25 mmol/L (21-32); CHLORIDE 103 mmol/L (98-107); CREATININE 1.8 mg/dL (0.6-1.3); GLUCOSE 135 mg/dL (74-106); POTASSIUM 3.3 mmol/L (3.5-5.1); SODIUM SERUM 141 mmol/L (136-145); UREA NITROGEN, BLOOD 37 mg/dL (7-18)
--- NOTE | 2017-09-11 08:44 | NUR ---
MS RN OPENING NOTES. PT RECEIVED A&0X3 RESTING IN BED. PT WITH O2 VA NC AT 2LPM, WITHOUT SOB, SAO2 98%. PT WITH IVCX2. IVC AT G#18 AT L HAND INTACT AND SALINE FLUSH PATENT, IVC AT R FA G#22 INTACT AND OPERATIONAL WITH HEPARIN DRIP. ENDORSED WITH HEPARIN DRIP RUNNING AT 1075 UNIT/HR PER PROTOCOL. PT REPORTING NO PAIN AT THIS TIME. BED IN LOWEST LOCKED POSITION WITH HANDRAILSX2 AND CALL SOSA WITHIN REACH. PT BRIEFED ON TODAY'S POC AND IS WITHOUT CONCERN OR COMPLAINT AT THIS TIME.
[2017-09-11] MEDS: NITROGLYCERIN 30 GM TUBE TP SCH ×2 (09:00→22:58)
[2017-09-11] MEDS: GLIMEPIRIDE 1 MG TABLET PO SCH (10:35)
[2017-09-11] MEDS: LEVOTHYROXINE SODIUM 88 MCG TABLET PO SCH (10:35)
[2017-09-11] MEDS: TICAGRELOR 90 MG PO SCH ×2 (10:36→17:24)
[2017-09-11] MEDS: ASPIRIN EC 81 MG TABLET.DR PO SCH (10:36)
[2017-09-11] MEDS: CARVEDILOL 3.125 MG TABLET PO SCH ×2 (10:37→23:10)
[2017-09-11] MEDS: LINAGLIPTIN 5 MG TABLET PO SCH (10:38)
[2017-09-11] MEDS: ALLOPURINOL 100 MG TABLET PO SCH (10:38)
[2017-09-11] MEDS ORDERED: POTASSIUM CHLORIDE 20 MEQ TAB.PRT.SR PO SCH (11:30)
[2017-09-11] MEDS: FUROSEMIDE 100 MG/10 ML VIAL IV SCH ×3 (11:42→23:00)
[2017-09-11] MEDS: INSULIN REGULAR, HUMAN 100 UNIT/ML 3 ML VIAL SQ PRN (12:24)
[2017-09-11 16:00] VITALS: BP 102/57
[2017-09-11] MEDS: LEVOFLOXACIN 250 MG /D5W 50 ML 250 MG in PREMIX 1 EA IV SCH (17:25)
--- NOTE | 2017-09-11 18:09 | NUR ---
MS RN OPENING NOTES. PT A&0X3 RESTING IN BED. PT WITH O2 VIA NC AT 2LPM, WITHOUT SOB, SAO2 98%. PT WITH IVCX2. IVC AT G#18 AT L HAND INTACT AND SALINE FLUSH PATENT, IVC AT R FA G#22 INTACT AND OPERATIONAL WITH HEPARIN DRIP. PT REMAINS WITH HEPARIN DRIP RUNNING AT 1075 UNIT/HR PER PROTOCOL, MD AWARE. PT REPORTING NO PAIN AT THIS TIME. BED IN LOWEST LOCKED POSITION WITH HANDRAILSX2 AND CALL SOSA WITHIN REACH. ALL DAY NURSE DUTIES ATTENDED TO, PT IS WITHOUT CONCERN OR COMPLAINT AT THIS TIME, WILL ENDORSE TO NIGHT NURSE.
--- NOTE | 2017-09-11 19:30 | NUR ---
Received patient in the bed.No unusual signs or symptoms observed or reported,no problems.On Heparin drip 1075 u/hr,tolerating well.
[2017-09-11 20:00] VITALS: BP 122/73
--- NOTE | 2017-09-11 21:25 | NUR ---
Patient became upset saying he had not sleep for three days and was complaining of the noise outside his door and the lights at his roommate's bed.Place a call to Dr Woods to get an order.
[2017-09-11] MEDS ORDERED: TEMAZEPAM 15 MG CAPSULE PO PRN (22:30)
--- NOTE | 2017-09-11 22:30 | NUR ---
Got an order from Dr Romero for Restoril 15 mg qhs,and gave patient as soon as it was available,no problems
[2017-09-11] MEDS ORDERED: TEMAZEPAM 15 MG CAPSULE ONE (22:34)
[2017-09-11] MEDS ORDERED: FUROSEMIDE 100 MG/10 ML VIAL ONE (22:54)
[2017-09-11] MEDS: SIMVASTATIN 40 MG TABLET PO SCH (22:57)
[2017-09-11] MEDS: LATANOPROST EYE DROP 0.005% 2.5 ML BOTTLE EACHEYE SCH (23:01)
[2017-09-12] MEDS: HEPARIN INFUSION/D5W 500 ML IV PRN (00:27)
--- NOTE | 2017-09-12 01:15 | NUR ---
BS at 2140 was 70 offered something to eat or drink but patient refused and said he would be ok.Informed charge nurse who said to take it at 2400.Took BS.BS is 79.
--- NOTE | 2017-09-12 03:00 | NUR ---
Resting quietly,no problems
[2017-09-12] MEDS: LEVOTHYROXINE SODIUM 88 MCG TABLET PO SCH (06:48)
[2017-09-12] MEDS: BLOOD SUGAR DIAGNOSTIC 1 EACH STRIP IN SCH ×4 (07:01→21:35)
--- NOTE | 2017-09-12 07:45 | NUR ---
MS RN OPENING NOTES. PT RECEIVED A&0X3 AWAKE AND RESTING IN BED. PT WITH O2 VIA NC AT 2LPM AND DENIES SOB. PT WITH IVCX2. IVC AT L HAND INTACT AND SL FLUSH PATENT, IVC AT R AC INTACT AND OPERATIONAL WITH HEPARIN DRIP. HEPARIN DRIP CURRENTLY OPERATIONAL AT 1075UNIT/HR. PT DENIES PAIN AT THIS TIME. BED IN LOWEST LOCKED POSITION WITH HANDRAILSX3 AND CALL SOSA WITHIN REACH. PT BRIEFED ON TODAY'S POC AND IS WITHOUT CONCERN OR COMPLIANT AT THIS TIME.
[2017-09-12 08:00] VITALS: BP 122/68
[2017-09-12] MEDS: NITROGLYCERIN 30 GM TUBE TP SCH ×2 (09:00→21:34)
[2017-09-12 09:08] LABS: BASOPHILS % (AUTO) 0.3 % (0.0-2.0); EOSINOPHILS # (AUTO) 0.1 /CMM (0.0-0.7); EOSINOPHILS % (AUTO) 2.7 % (0.0-6.0); HEMATOCRIT 27 % (39-51); HEMOGLOBIN 9.4 g/dL (13.5-17.5); LYMPHOCYTES # (AUTO) 1.1 /CMM (0.8-4.8); LYMPHOCYTES % (AUTO) 22.4 % (20.0-44.0); MEAN CORPUSCULAR HEMOGLOBIN 28 PG (26.0-33.0); MEAN CORPUSCULAR HGB CONC 34 g/dl (31.0-36.0); MEAN CORPUSCULAR VOLUME 82 fL (80-96); MONOCYTES # (AUTO) 0.3 /CMM (0.1-1.30); MONOCYTES % (AUTO) 7.3 % (2.0-12.0); NEUTROPHILS # (AUTO) 3.2 /CMM (1.8-8.9); NEUTROPHILS % (AUTO) 67.3 % (43.0-81.0); PLATELET COUNT (AUTO) 151 /CMM (150-450); RDW COEFFICIENT OF VARIATION 20.2 (11.5-15.0); RED BLOOD CELL COUNT(AUTO) 3.35 MIL/uL (4.5-6.0); WHITE BLOOD COUNT (AUTO) 4.8 K/uL (4.3-11.0)
[2017-09-12] MEDS: GLIMEPIRIDE 1 MG TABLET PO SCH (09:16)
[2017-09-12] MEDS: ASPIRIN EC 81 MG TABLET.DR PO SCH (09:17)
[2017-09-12] MEDS: TICAGRELOR 90 MG PO SCH ×2 (09:17→17:11)
[2017-09-12] MEDS: LINAGLIPTIN 5 MG TABLET PO SCH (09:18)
[2017-09-12] MEDS: ALLOPURINOL 100 MG TABLET PO SCH (09:18)
[2017-09-12] MEDS: CARVEDILOL 3.125 MG TABLET PO SCH ×2 (09:24→21:33)
[2017-09-12 10:11] LABS: ALANINE AMINOTRANSFERASE 43 U/L (12-78); ALKALINE PHOSPHATASE 113 U/L (46-116); ASPARTATE AMINOTRANSFERASE 47 U/L (15-37); BILIRUBIN,TOTAL 0.5 mg/dL (0.2-1.0); CALCIUM, SERUM 8.4 mg/dL (8.5-10.1); CARBON DIOXIDE 25 mmol/L (21-32); CHLORIDE 106 mmol/L (98-107); CREATININE 1.8 mg/dL (0.6-1.3); GLUCOSE 106 mg/dL (74-106); MAGNESIUM 2.3 mg/dL (1.8-2.4); PHOSPHORUS 4.3 mg/dL (2.5-4.9); POTASSIUM 3.4 mmol/L (3.5-5.1); SODIUM SERUM 144 mmol/L (136-145); TOTAL PROTEIN, SERUM 7.7 g/dL (6.4-8.2); UREA NITROGEN, BLOOD 38 mg/dL (7-18)
--- NOTE | 2017-09-12 10:15 | NUR ---
RN NOTES. CRITICAL TOPONIN LEVEL 0.808 REPORTED TO MD PER PROTOCOL
[2017-09-12 10:17] LABS: TROPONIN I 0.808 ng/mL (0.00-0.056)
--- NOTE | 2017-09-12 11:49 | NUR ---
RN NOTES. PT HEPARIN INFUSION D/C PER .
[2017-09-12] MEDS: POTASSIUM CHLORIDE 20 MEQ TAB.PRT.SR PO SCH ×2 (13:00→13:29)
[2017-09-12] MEDS: INSULIN REGULAR, HUMAN 100 UNIT/ML 3 ML VIAL SQ PRN (13:31)
[2017-09-12] MEDS: ENOXAPARIN SODIUM 30 MG/0.3 ML DISP.SYRIN SQ SCH (13:32)
[2017-09-12 16:00] VITALS: BP 105/68
[2017-09-12] MEDS: LEVOFLOXACIN 250 MG /D5W 50 ML 250 MG in PREMIX 1 EA IV SCH (17:11)
[2017-09-12] MEDS ORDERED: POTASSIUM CHLORIDE 20 MEQ TAB.PRT.SR PO SCH (18:00)
--- NOTE | 2017-09-12 18:15 | NUR ---
RN CLOSING NOTES. PT A&0X3 RESTING IN BED WATCHING T.V. PT WITH O2 VIA NC AT 2LPM AND WITHOUT SOB. PT DENIES PAIN AND IS WITHOUT S/S OF DISTRESS OR DISCOMFORT. PT WITH IVCX2. IVC AT L HAND G#18 INTACT AND SL, IVC AT R AC INTACT AND SL. PT FOR D/C TO [facility] AT 0800, [employer] AND FACILITY TRANSFER DOCUMENT STARTED, WILL ENDORSE TO NIGHT NURSE TO COMPLETE AT APPROPRIATE TIME. BED IN LOWEST LOCKED POSITION WITH HANDRAILSX2 AND CALL SOSA WITHIN REACH. ALL DAY NURSE DUTIES ATTENDED TO, PT WITHOUT CONCERN OR COMPLAINT AT THIS TIME, WILL ENDORSE TO NIGHT NURSE.
--- NOTE | 2017-09-12 19:45 | NUR ---
MS RN OPENING NOTES RECEIVED PT IN BED AWAKE,ALERT,VERBALLY RESPONSIVE.ON O2 VIA N/C AT 2L/MIN,NO RESPIRATORY DISTRESS NOTED. IV SITE INTACT,PATENT.CALL LIGHT WITHIN REACH.BED LOCKED IN LOWEST POSITION.ATTENDED ALL NEEDS.WILL CONTINUE TO MONITOR ACCORDINGLY.
[2017-09-12 20:38] VITALS: BP 109/66
[2017-09-12] MEDS: LATANOPROST EYE DROP 0.005% 2.5 ML BOTTLE EACHEYE SCH (21:32)
[2017-09-12] MEDS: SIMVASTATIN 40 MG TABLET PO SCH (21:32)
[2017-09-12 22:00] VITALS: BP 110/66
[2017-09-13] MEDS: BLOOD SUGAR DIAGNOSTIC 1 EACH STRIP IN SCH ×4 (05:33→22:30)
--- NOTE | 2017-09-13 06:00 | NUR ---
MS THERESA NOTES RECEIVED A CALL FROM [facility] THAT THEY CANCELING THE PROCEDURE IN [facility] DUE TO NOT AVAILABLE ICU BED. DR LANE NOTIFIED REGARDING THE CANCELLATION OF THE PROCEDURE, ASKED REGARDING NPO ORDER AT THIS TIME. DR LANE STATED NOT TO KEEP PT NPO.
[2017-09-13 06:27] LABS: BASOPHILS % (AUTO) 0.1 % (0.0-2.0); EOSINOPHILS # (AUTO) 0.1 /CMM (0.0-0.7); HEMATOCRIT 27 % (39-51); HEMOGLOBIN 9.1 g/dL (13.5-17.5); LYMPHOCYTES # (AUTO) 1.1 /CMM (0.8-4.8); LYMPHOCYTES % (AUTO) 20.2 % (20.0-44.0); MEAN CORPUSCULAR HEMOGLOBIN 28 PG (26.0-33.0); MEAN CORPUSCULAR HGB CONC 34 g/dl (31.0-36.0); MEAN CORPUSCULAR VOLUME 81 fL (80-96); MONOCYTES # (AUTO) 0.5 /CMM (0.1-1.30); MONOCYTES % (AUTO) 8.5 % (2.0-12.0); NEUTROPHILS # (AUTO) 3.9 /CMM (1.8-8.9); NEUTROPHILS % (AUTO) 69.2 % (43.0-81.0); PLATELET COUNT (AUTO) 169 /CMM (150-450); RDW COEFFICIENT OF VARIATION 19.7 (11.5-15.0); RED BLOOD CELL COUNT(AUTO) 3.28 MIL/uL (4.5-6.0); WHITE BLOOD COUNT (AUTO) 5.6 K/uL (4.3-11.0)
--- NOTE | 2017-09-13 06:42 | NUR ---
MS RN NOTES PT IN BED ASLEEP,ON O2 VIA N/C AT 2L/MIN, NO SOB NOTED.RESPIRATIONS EVEN UNLABORED. IV SITE INTACT.CALL LIGHT WITHIN REACH.BLOOD GLUCOSE 101.KEPT CLEAN AND COMFORTABLE.ATTENDED ALL NEEDS.WILL CONTINUE TO MONITOR
[2017-09-13 07:19] LABS: CALCIUM, SERUM 8.5 mg/dL (8.5-10.1); CARBON DIOXIDE 25 mmol/L (21-32); CHLORIDE 107 mmol/L (98-107); CREATININE 1.9 mg/dL (0.6-1.3); GLUCOSE 96 mg/dL (74-106); MAGNESIUM 2.3 mg/dL (1.8-2.4); PHOSPHORUS 3.9 mg/dL (2.5-4.9); POTASSIUM 4.2 mmol/L (3.5-5.1); SODIUM SERUM 143 mmol/L (136-145); UREA NITROGEN, BLOOD 38 mg/dL (7-18)
--- NOTE | 2017-09-13 07:32 | NUR ---
MS RN OPENING NOTES. RECEIVED PT AWAKE IN BED IN NO ACUTE SIGNS OF DISTRESS. A/O X3, VERBALLY RESPONSIVE, DENIES ANY PAIN OR DISCOMFORTS AT THIS TIME. RECEIVED REPORT FROM NIGHT NURSE THAT [facility]ED[facility] FROM [facility] CANCE[facility]. PT'S ON O2 VIA N/C @ 2LPM, TOLERATING WELL WITH NO SOB NOTED. IV ACCESSES ON LEFT HAND AND RIGHT AC, BOTH INTACT AND PATENT. BED IN LOWEST AND LOCKED POSITION WITH HANDRAILS UP X2. CALL SOSA WITHIN REACH. WILL CONTINUE TO MONITOR.
[2017-09-13] MEDS: LEVOTHYROXINE SODIUM 88 MCG TABLET PO SCH (07:58)
[2017-09-13 08:00] VITALS: BP 111/68
[2017-09-13] MEDS: GLIMEPIRIDE 1 MG TABLET PO SCH (08:19)
[2017-09-13] MEDS: LINAGLIPTIN 5 MG TABLET PO SCH (08:20)
[2017-09-13] MEDS: ASPIRIN EC 81 MG TABLET.DR PO SCH (08:20)
[2017-09-13] MEDS: ALLOPURINOL 100 MG TABLET PO SCH (08:20)
[2017-09-13] MEDS: CARVEDILOL 3.125 MG TABLET PO SCH ×2 (08:21→21:50)
[2017-09-13] MEDS: TICAGRELOR 90 MG PO SCH ×2 (08:25→16:21)
[2017-09-13] MEDS: NITROGLYCERIN 30 GM TUBE TP SCH ×2 (08:25→21:50)
[2017-09-13] MEDS: ENOXAPARIN SODIUM 30 MG/0.3 ML DISP.SYRIN SQ SCH (08:26)
[2017-09-13] MEDS ORDERED: ZOLPIDEM TARTRATE 5 MG TABLET PO PRN (11:30)
[2017-09-13] MEDS: INSULIN REGULAR, HUMAN 100 UNIT/ML 3 ML VIAL SQ PRN (11:59)
[2017-09-13 16:00] VITALS: BP 120/70
[2017-09-13] MEDS: LEVOFLOXACIN (250MG) 250 MG TABLET PO SCH (16:21)
--- NOTE | 2017-09-13 19:06 | NUR ---
MS RN CLOSING NOTES. PT AWAKE AND RESTING IN BED AT MODERATE HIGH BACKREST. A/O X4, SAME VERBALLY RESPONSIVE. ALL NEEDS AND CARE PROVIDED WELL.ON O2 VIA N/C @ 2LPM, TOLERATING WELL WITH NO SOB NOTED. IV ACCESSES ON LEFT HAND AND RIGHT AC, BOTH INTACT AND PATENT. BED IN LOWEST AND LOCKED POSITION WITH HANDRAILS UP X2. CALL SOSA WITHIN REACH. ALL SAFETY PRECAUTIONS MAINTAINED. WILL ENDORSED TO AUTOMATION TEST ENGINEER NURSE FOR GARY. .
--- NOTE | 2017-09-13 19:35 | NUR ---
MS RN OPENING NOTES. RECEIVED PT AWAKE IN BED WITH FAMILY @ BED SIDE. IN NO ACUTE SIGNS OF DISTRESS. A/O X3, VERBALLY RESPONSIVE, DENIES ANY PAIN OR DISCOMFORTS AT THIS TIME. RECEIVED REPORT FROM AM NURSE THAT PROCEDURE FROM [facility] WAS CANCELLED TODAY DUE TO BED NOT BEING AVAILABLE. WILL F/U WITH [facility] @ NIGHT. PT'S ON O2 VIA N/C @ 2LPM, TOLERATING WELL WITH NO SOB NOTED. IV ACCESSES ON LEFT HAND AND RIGHT AC, SL, BOTH INTACT AND PATENT. BED IN LOWEST AND LOCKED POSITION WITH HANDRAILS UP X2. CALL SOSA WITHIN REACH. WILL CONTINUE TO MONITOR.
[2017-09-13 20:00] VITALS: BP 123/68
[2017-09-13] MEDS: SIMVASTATIN 40 MG TABLET PO SCH (21:49)
[2017-09-13] MEDS: LATANOPROST EYE DROP 0.005% 2.5 ML BOTTLE EACHEYE SCH (21:52)
[2017-09-13] MEDS: ZOLPIDEM TARTRATE 10 MG TABLET PO PRN (22:30)
--- NOTE | 2017-09-13 22:30 | NUR ---
PRN AMBIEN GIVEN PATIENT REQUESTED FOR AMBIEN DUE TO SLEEPLESSNESS, PRN AMBIEN GIVEN. WILL REASSESS FOR EFFECTIVENESS.
--- NOTE | 2017-09-13 22:35 | NUR ---
MOVED PT TO 323-2 PT FELT VERY UNCOMFORTABLE BEING WITH NEW ADMISSION PATIENT, OTHER PT WAS NON COMPLAINT, LOUD & VERY TALKATIVE. MOVED TO ROOM 323-2, PT THANKED FOR HELPING HIM TO GO TO QUIET ROOM WHERE HE COULD SLEEP BETTER. SON CALLED TWICE TO F/U WELL.
--- NOTE | 2017-09-14 00:30 | NUR ---
FOLLOWED UP WITH [facility] HOSP CHARGE NURSE CALLED [facility] TO CHECK IF ANY BED IS AVAILABLE FOR THE PT TO HAVE CARDIAC CATHETERIZATION DONE IN AM, SPOKE TO COLLEEN MAURO. NO BED AVAILABLE @ THIS TIME. WILL ENDORSE TO AM SHIFT TO F/U AGAIN.
--- NOTE | 2017-09-14 06:49 | NUR ---
MS RN CLOSING NOTES. PT SLEPT WELL @ NIGHT. A/O X4, SAME VERBALLY RESPONSIVE. ALL NEEDS AND CARE PROVIDED WELL.ON O2 VIA N/C @ 2LPM, TOLERATING WELL WITH NO SOB NOTED. IV ACCESSES ON LEFT HAND AND RIGHT AC, BOTH INTACT AND PATENT. BED IN LOWEST AND LOCKED POSITION WITH HANDRAILS UP X2. CALL SOSA WITHIN REACH. ALL SAFETY PRECAUTIONS MAINTAINED. WILL ENDORSED TO AM SHIFT NURSE FOR CONTINUITY OF CARE.
[2017-09-14] MEDS: BLOOD SUGAR DIAGNOSTIC 1 EACH STRIP IN SCH ×4 (07:30→20:53)
--- NOTE | 2017-09-14 07:54 | NUR ---
RN OPENING NOTES RECEIVED PT. PT IS STABLE AND RESTING IN BED, A/OX4. PT NO LONGER EXPERIENCING SOB, BREATHING IS EVEN/UNLABORED. NO C/O PAIN AT THIS TIME. PER STEEL FABRICATOR REPORT, PT SCHEDULED FOR CARDIAC CATH PENDING OPENING BED AT [facility]. NPO REMOVED IN EARLY AM 09/14 DUE TO BED BEING UNAVAILABLE AFTER CONTACTING COLLEEN @ [facility]. SAFETY MEASURES IN PLACE, CALL LIGHT WITHIN REACH, WILL CONTINUE TO MONITOR.
[2017-09-14 08:00] VITALS: BP 102/51
[2017-09-14 08:25] LABS: BASOPHILS % (AUTO) 0.1 % (0.0-2.0); EOSINOPHILS # (AUTO) 0.1 /CMM (0.0-0.7); EOSINOPHILS % (AUTO) 1.5 % (0.0-6.0); HEMATOCRIT 27 % (39-51); LYMPHOCYTES # (AUTO) 1.4 /CMM (0.8-4.8); LYMPHOCYTES % (AUTO) 27.6 % (20.0-44.0); MEAN CORPUSCULAR HEMOGLOBIN 27 PG (26.0-33.0); MEAN CORPUSCULAR HGB CONC 34 g/dl (31.0-36.0); MEAN CORPUSCULAR VOLUME 80 fL (80-96); MONOCYTES # (AUTO) 0.5 /CMM (0.1-1.30); MONOCYTES % (AUTO) 9.5 % (2.0-12.0); NEUTROPHILS # (AUTO) 2.9 /CMM (1.8-8.9); NEUTROPHILS % (AUTO) 61.3 % (43.0-81.0); PLATELET COUNT (AUTO) 193 /CMM (150-450); RDW COEFFICIENT OF VARIATION 18.6 (11.5-15.0); RED BLOOD CELL COUNT(AUTO) 3.37 MIL/uL (4.5-6.0); WHITE BLOOD COUNT (AUTO) 4.9 K/uL (4.3-11.0)
[2017-09-14] MEDS: GLIMEPIRIDE 1 MG TABLET PO SCH (08:45)
[2017-09-14] MEDS: LINAGLIPTIN 5 MG TABLET PO SCH (08:45)
[2017-09-14] MEDS: TICAGRELOR 90 MG PO SCH ×2 (08:46→17:01)
[2017-09-14] MEDS: LEVOTHYROXINE SODIUM 88 MCG TABLET PO SCH (08:46)
[2017-09-14] MEDS: ASPIRIN EC 81 MG TABLET.DR PO SCH (08:46)
[2017-09-14] MEDS: ALLOPURINOL 100 MG TABLET PO SCH (08:46)
[2017-09-14] MEDS: NITROGLYCERIN 30 GM TUBE TP SCH ×2 (08:46→21:00)
[2017-09-14] MEDS: CARVEDILOL 3.125 MG TABLET PO SCH (08:46)
[2017-09-14] MEDS: ENOXAPARIN SODIUM 30 MG/0.3 ML DISP.SYRIN SQ SCH (08:54)
[2017-09-14 09:03] LABS: CALCIUM, SERUM 9.1 mg/dL (8.5-10.1); CARBON DIOXIDE 29 mmol/L (21-32); CHLORIDE 106 mmol/L (98-107); CREATININE 1.8 mg/dL (0.6-1.3); GLUCOSE 112 mg/dL (74-106); MAGNESIUM 2.8 mg/dL (1.8-2.4); PHOSPHORUS 3.9 mg/dL (2.5-4.9); POTASSIUM 4.6 mmol/L (3.5-5.1); SODIUM SERUM 142 mmol/L (136-145); UREA NITROGEN, BLOOD 40 mg/dL (7-18)
--- NOTE | 2017-09-14 14:14 | NUR ---
RN NOTES PT SCHEDULED FOR CARDIAC CATH AT 0900 AT [facility], TOMORROW 09/15/17. PT MADE AWARE OF SCHEDULE. REPORT TO BE GIVEN TO CARDIAC HVAC TECHNICIAN . PT TO BE PLACED NPO STARTING AT MIDNIGHT.
[2017-09-14 16:09] VITALS: BP 113/62
[2017-09-14] MEDS: LEVOFLOXACIN (250MG) 250 MG TABLET PO SCH (16:58)
--- NOTE | 2017-09-14 18:25 | NUR ---
RN CLOSING NOTES PT IN BED RESTING. NO S/S OF RESP DISTRESS/SOB. NO C/O PAIN AT THIS TIME. PT SCHEDULED FOR FOREST ENGINEER FOR TRANSPORT TO [facility] AT 0630. TO BE NPO AT MIDNIGHT. REPORT TO BE GIVEN BY MANAGER CREDIT COLLECTIONS TO [facility] ([phone]). SAFETY MEASURES IN PLACE, CALL LIGHT WITHIN REACH. WILL ENDORSE TO MANAGER CREDIT COLLECTIONS FOR GARY.
--- NOTE | 2017-09-14 19:20 | NUR ---
RN OPENING NOTES PATIENT RECEIVED IN BED, ALERT AND ORIENTED X 4, NO C/O PAIN AND IN NO ACUTE DISTRESS AT THIS TIME. NOTED WITH NO SOB, BREATHING EVEN AND UNLABORED. ALL PATIENT'S NEEDS ATTENDED TO. CALL LIGHT PLACED WITHIN EASY REACH. WILL CONTINUE TO MONITOR PT.
[2017-09-14 20:00] VITALS: BP 118/70
--- NOTE | 2017-09-14 20:45 | NUR ---
RN NOTES SPOKE WITH PATIENT, PER PATIENT HE WOULD LIKE TO RECEIVE ALL DUE MEDICATION FOR TONIGHT EARLY. EXPLAINED RISKS AND BENEFITS TO PATIENT. PATIENT WOULD LIKE TO SLEEP WELL AND BE READY FOR HIS TRANSFER IN THE AM. RESPECTED PATIENT'S REQUEST.
[2017-09-14] MEDS: LATANOPROST EYE DROP 0.005% 2.5 ML BOTTLE EACHEYE SCH (20:46)
[2017-09-14] MEDS: SIMVASTATIN 40 MG TABLET PO SCH (20:49)
[2017-09-14] MEDS: ZOLPIDEM TARTRATE 10 MG TABLET PO PRN (20:50)
[2017-09-14] MEDS ORDERED: CARVEDILOL 3.125 MG TABLET PO SCH (21:00)
--- NOTE | 2017-09-14 21:00 | NUR ---
RN NOTES ALL PATIENT'S DUE MEDS GIVEN, AMBIEN ALSO ADMINISTERED PER PATIENT'S REQUEST. ALL PATIENT'S NEEDS ATTENDED TO. CALL LIGHT PLACED WITHIN EASY REACH. PATIENT'S BED PLACED IN LOW POSITION, LOCKED IN PLACE. WILL CONTINUE TO MONITOR.
[2017-09-15] MEDS: BLOOD SUGAR DIAGNOSTIC 1 EACH STRIP IN SCH (05:53)
--- NOTE | 2017-09-15 06:35 | NUR ---
RN NOTES GAVE REPORT TO MARTHA OF [facility] CARDIAC DYE WEIGHER HELPER. WILL SEND PACKET WITH PATIENT. DISCHARGE TEACHING GIVEN TO PATIENT, BELONGINGS COMPLETE, SKIN IS INTACT. ALL PATIENT'S NEEDS ATTENDED TO. PATIENT AWAITING FOR DELIVERY COORDINATOR.
[2017-09-15 06:58] LABS: BASOPHILS % (AUTO) 0.3 % (0.0-2.0); EOSINOPHILS # (AUTO) 0.1 /CMM (0.0-0.7); EOSINOPHILS % (AUTO) 1.3 % (0.0-6.0); HEMATOCRIT 27 % (39-51); HEMOGLOBIN 9.3 g/dL (13.5-17.5); LYMPHOCYTES # (AUTO) 1.5 /CMM (0.8-4.8); LYMPHOCYTES % (AUTO) 30.3 % (20.0-44.0); MEAN CORPUSCULAR HEMOGLOBIN 28 PG (26.0-33.0); MEAN CORPUSCULAR HGB CONC 34 g/dl (31.0-36.0); MEAN CORPUSCULAR VOLUME 81 fL (80-96); MONOCYTES # (AUTO) 0.3 /CMM (0.1-1.30); MONOCYTES % (AUTO) 6.9 % (2.0-12.0); NEUTROPHILS % (AUTO) 61.2 % (43.0-81.0); PLATELET COUNT (AUTO) 198 /CMM (150-450); RDW COEFFICIENT OF VARIATION 19.9 (11.5-15.0); RED BLOOD CELL COUNT(AUTO) 3.33 MIL/uL (4.5-6.0)
[2017-09-15 07:00] VITALS: BP 124/70
[2017-09-15 07:06] LABS: CALCIUM, SERUM 9.2 mg/dL (8.5-10.1); CARBON DIOXIDE 26 mmol/L (21-32); CHLORIDE 106 mmol/L (98-107); CREATININE 1.8 mg/dL (0.6-1.3); GLUCOSE 108 mg/dL (74-106); POTASSIUM 4.8 mmol/L (3.5-5.1); SODIUM SERUM 141 mmol/L (136-145); UREA NITROGEN, BLOOD 43 mg/dL (7-18)
[2017-09-15 07:18] LABS: INR 0.99 (0.87-1.13); PROTHROMBIN TIME 10.3 SECS (9.5-12.7)
--- NOTE | 2017-09-15 07:20 | NUR ---
RN CLOSING NOTES PATIENT UP IN CHAIR, READY FOR RN OR LPN. ALL BELONGINGS WITH PATIENT. PATIENT ALERT AND ORIENTED X 4, NO C/O PAIN, NO SOB NOTED, AFVSS. EXITED UNIT SAFELY VIA GURNEY ACCOMPANIED BY 2 PERSONNEL OF [employer].
[2017-09-15] MEDS: LEVOTHYROXINE SODIUM 88 MCG TABLET PO SCH (07:30)
[2017-09-15] MEDS: ASPIRIN EC 81 MG TABLET.DR PO SCH (09:00)
[2017-09-15] MEDS: NITROGLYCERIN 30 GM TUBE TP SCH (09:00)
[2017-09-15] MEDS: GLIMEPIRIDE 1 MG TABLET PO SCH (09:00)
== END 2017-09-15 07:15 | disposition short-term general hospital (02) | DRG 871 ==
LOC: ER 09:22 → TELE 17:16 → MED 09-09 10:45
PROVIDERS: ADMIT Nurse Practitioner Acute Care; ATTEND Nurse Practitioner Acute Care
DX: A41.9 Sepsis, unspecified organism (principal); I21.4 Non-ST elevation (NSTEMI) myocardial infarction; J96.01 Acute respiratory failure with hypoxia; I50.23 Acute on chronic systolic (congestive) heart failure; J18.9 Pneumonia, unspecified organism; I13.0 Hypertensive heart and chronic kidney disease with heart failure and stage 1 through stage 4 chronic kidney disease, or unspecified chronic kidney disease; E11.22 Type 2 diabetes mellitus with diabetic chronic kidney disease; D63.8 Anemia in other chronic diseases classified elsewhere; N39.0 Urinary tract infection, site not specified; N18.9 Chronic kidney disease, unspecified; E78.5 Hyperlipidemia, unspecified; E03.9 Hypothyroidism, unspecified; H40.9 Unspecified glaucoma; E87.6 Hypokalemia; I25.10 Atherosclerotic heart disease of native coronary artery without angina pectoris; I70.0 Atherosclerosis of aorta; Z95.5 Presence of coronary angioplasty implant and graft; Z95.0 Presence of cardiac pacemaker; Z79.899 Other long term (current) drug therapy; Z79.82 Long term (current) use of aspirin; Z79.4 Long term (current) use of insulin; I44.7 Left bundle-branch block, unspecified; M10.9 Gout, unspecified; D64.9 Anemia, unspecified
CPT/HCPCS: 36415; 36600; 71045-TC; 78579; 80048-TC; 80053-TC; 80061-TC; 80076-TC; 81000-TC; 82728-TC; 82803-TC; 82962-TC; 83540-TC; 83605-TC; 83735-TC; 83880; 84100-TC; 84443-TC; 84484-TC; 85025-TC; 85730-TC; 87040-TC; 87081-TC; 87086-TC; 93307-TC; A4216; A4606; A9540; A9567; J0696; J1644; J1650; J1815; J1940; J1956; J7050; J7060; Z7610

== ENCOUNTER 2019-06-23 03:54 | Inpatient (IN) | payer MEDICARE, MEDICAID ==
[~2019-06-23] VITALS: Ht 162.6 cm; Wt 66.2 kg
[~2019-06-23 03:54] MED LIST changes: -*INS REG SQ; +ALLO100T PO; +CARV3.122 PO; -CARV6.252 PO; -CLOP75TA15 PO; +GLIM2TAB3 PO; -INSU100V28 SQ; -LISI-603 PO; -POTA8TAB8 PO; +SACU1TAB7 PO; +SIMV-49 PO; -SIMV40TA5 PO; +SITA50TA PO; -TRAM50TA2 PO
[2019-06-23 04:44] LABS: BASOPHILS % (AUTO) 0.5 % (0.0-2.0); EOSINOPHILS % (AUTO) 0.5 % (0.0-6.0); HEMATOCRIT 28 % (39-51); HEMOGLOBIN 8.9 g/dL (13.5-17.5); LYMPHOCYTES # (AUTO) 1.1 /CMM (0.8-4.8); LYMPHOCYTES % (AUTO) 16.1 % (20.0-44.0); MEAN CORPUSCULAR HGB CONC 32 g/dl (31.0-36.0); MEAN CORPUSCULAR VOLUME 82 fL (80-96); MONOCYTES # (AUTO) 0.4 /CMM (0.1-1.30); MONOCYTES % (AUTO) 5.1 % (2.0-12.0); NEUTROPHILS # (AUTO) 5.5 /CMM (1.8-8.9); NEUTROPHILS % (AUTO) 77.8 % (43.0-81.0); PLATELET COUNT (AUTO) 185 /CMM (150-450); RED BLOOD CELL COUNT(AUTO) 3.37 MIL/uL (4.5-6.0); WHITE BLOOD COUNT (AUTO) 7.1 K/uL (4.3-11.0)
[2019-06-23 04:45] LABS: CALCIUM, SERUM 8.5 mg/dL (8.5-10.1); CARBON DIOXIDE 23 mmol/L (21-32); CHLORIDE 105 mmol/L (98-107); GLUCOSE 192 mg/dL (74-106); SODIUM SERUM 142 mmol/L (136-145); UREA NITROGEN, BLOOD 35 mg/dL (7-18)
--- NOTE | 2019-06-23 04:52 | NUR ---
BIBSEL FROM HOME. TO ER BED 3. AAOX4. SOB, GASPING FOR AIR. AMBULATORY. C/O SOB. PT REPORTS THAT SOB STARTED LAST NIGHT AND DIFFICULT TO BREATH. PT REPORTS THAT HE HAVE CHF AND IT IS THE SAME SENSATION WHEN HE HAD AN EXCERBATION. PT NOTED GASPING FOR AIR AND SATTING AT 92%. PLACED ON O2 VIA NC @ 2LPM, SATTING WENT UP TO 98% AND PT VERBALIZED RELIEF FROM SOB. MD AT BEDSIDE FOR EVAL. ORDERS RECEIVED NOTED, AND CARRIED OUT.
[2019-06-23 04:58] LABS: ALANINE AMINOTRANSFERASE 49 U/L (12-78); ALBUMIN 3.8 g/dL (3.4-5.0); ALKALINE PHOSPHATASE 144 U/L (46-116); ASPARTATE AMINOTRANSFERASE 47 U/L (15-37); B-TYPE NATRIURETIC PEPTIDE 8596 PG/ML (0-125); BILIRUBIN,DIRECT 0.2 mg/dL (0.0-0.2); BILIRUBIN,TOTAL 0.7 mg/dL (0.2-1.0); TOTAL PROTEIN, SERUM 8.5 g/dL (6.4-8.2)
[2019-06-23] MEDS ORDERED: ASPIRIN 325 MG TABLET PO ONE (05:30)
[2019-06-23] MEDS ORDERED: FUROSEMIDE 40 MG/4 ML VIAL IV ONE (05:30)
[2019-06-23] MEDS ORDERED: ASPIRIN 325 MG TABLET ONE (05:37)
[2019-06-23] MEDS ORDERED: FUROSEMIDE 40 MG/4 ML VIAL ONE (05:37)
--- NOTE | 2019-06-23 06:35 | NUR ---
CALLED FOR REPORT, NURSE BUSY, WILL CALL BACK
[2019-06-23] MEDS ORDERED: ZOLPIDEM TARTRATE 5 MG TABLET PO PRN (07:00)
[2019-06-23] MEDS ORDERED: Z GUARD REMEDY 2 OZ OINT TP PRN (07:00)
[2019-06-23] MEDS ORDERED: MAG HYDROX/AL HYDROX/SIMETH 30 ML UDC PO PRN (07:00)
[2019-06-23] MEDS ORDERED: ONDANSETRON HCL/PF 4 MG/2 ML VIAL IVP PRN (07:00)
[2019-06-23] MEDS ORDERED: HYDROCODONE/APAP 5/325MG 1 EACH TABLET PO PRN (07:00)
[2019-06-23] MEDS ORDERED: MAGNESIUM HYDROXIDE 30 ML UDC PO PRN (07:00)
[2019-06-23] MEDS ORDERED: ACETAMINOPHEN 325 MG TABLET PO PRN (07:00)
--- NOTE | 2019-06-23 07:15 | NUR ---
TRANSPORTED PT TO [facility] VIA ACLS PROTOCOL
[2019-06-23] MEDS: ASPIRIN EC 81 MG TABLET.DR PO SCH (08:19)
[2019-06-23] MEDS: GLIMEPIRIDE 1 MG TABLET PO SCH (08:19)
[2019-06-23] MEDS: LINAGLIPTIN 5 MG TABLET PO SCH (08:19)
[2019-06-23] MEDS: LEVOTHYROXINE SODIUM 88 MCG TABLET PO SCH (08:20)
[2019-06-23] MEDS: CARVEDILOL 3.125 MG TABLET PO SCH ×2 (08:20→16:24)
[2019-06-23] MEDS: ALLOPURINOL 100 MG TABLET PO SCH (08:20)
[2019-06-23] MEDS: TICAGRELOR 90 MG TABLET PO SCH ×2 (08:24→16:28)
--- NOTE | 2019-06-23 08:31 | NUR ---
RECEIVED PHONE CALL FROM LAB WITH CRITICAL RESULT TROP 0.587, SPOKE WITH ELY
[2019-06-23] MEDS ORDERED: FUROSEMIDE 40 MG/4 ML VIAL IV SCH (09:00)
[2019-06-23] MEDS ORDERED: FUROSEMIDE 100 MG/10 ML VIAL IV SCH (10:30)
[2019-06-23] MEDS ORDERED: ENOXAPARIN SODIUM 30 MG/0.3 ML DISP.SYRIN SQ SCH (10:44)
[2019-06-23 12:51] VITALS: BP 145/82
[2019-06-23] MEDS: FUROSEMIDE 100 MG/10 ML VIAL IV SCH ×3 (12:56→20:22)
--- NOTE | 2019-06-23 14:51 | NUR ---
OLDER WORKER SPECIALIST OPENING NOTE RECEIVED PT FROM ER, PT AWAKE IN BED, ALERT AND ORIENTED X 4, ON 02 VIA NC 2L/MIN, SATURATING WELL, NO SIGNS OF RESPIRATORY DISTRESS NOTED. DENIES ANY PAIN AT THIS TIME. IV SITE ON RIGHT AC G18 INTACT, PATENT, WITH SALINE LOCK. HEAD TO TOE ASSESSMENT PERFORMED. PHOTO TAKEN OF BRUISE IN GROIN AREA, PLACED INTO CHART. BED IN LOW POSITION, LOCKED, CALL LIGHT WITHIN REACH. ALL BELONGINGS ACCOUNTED FOR. INTRODUCED SELF TO PT AND DISCUSSED PLAN OF CARE. Addendum: 06/23/19 at 1454 by ISSA GROVES RN OLDER WORKER SPECIALIST OPENING NOTE CORRECT TIME: 714
--- NOTE | 2019-06-23 15:18 | NUR ---
RECEIVED CALL FROM LAB WITH CRITICAL LAB RESULTS OF TROPONIN 0.569, SPOKE WITH KAI
--- NOTE | 2019-06-23 18:45 | NUR ---
HYDROCHLORIC AREA SUPERVISOR CLOSING NOTE PT AWAKE IN BED, ALERT AND ORIENTED X 4, ON 02 VIA NC 2L/MIN, SATURATING WELL, NO SIGNS OF RESPIRATORY DISTRESS NOTED. DENIES ANY PAIN AT THIS TIME. SINUS RHYTHM ON LOG DECK TENDER, HR 91 WITH PVC. IV SITE ON RIGHT AC G18 INTACT, PATENT, WITH SALINE LOCK. BED IN LOW POSITION, LOCKED, CALL LIGHT WITHIN REACH. PROVIDED SAFETY AND COMFORT TO PT THROUGHOUT SHIFT, ALL DUE MEDS GIVEN. WILL ENDORSE TO NOC SHIFT NURSE.
--- NOTE | 2019-06-23 19:25 | NUR ---
DRILLER PORTABLE OPENING NOTES RECEIVED PATIENT IN BED, AWAKE, A/OX4, ABLE TO MAKE NEEDS KNOWN. ON OXYGEN 3L VIA NC, NO S/S OF RESPIRATORY OR CARDIAC DISTRESS NOTED. DENIES ANY PAIN. ON TELE MONITOR SR WITH HR 90'S. IV SITE RIGHT AC #18, FLUSHING, PATENT AND INTACT, S/L. SAFETY MEASURES IN PLACE; BED LOCKED AND IN LOWEST POSITION, CALL LIGHT WITHIN REACH, SIDE RAILS UP X2. WILL CONT TO MONITOR PT. Addendum: 06/24/19 at 0257 by EMERSON BECKWITH RN CLARIFICATION: RECEIVED PT ON OXYGEN 2LPM VIA NC, NOT 3LPM.
[2019-06-23 20:00] VITALS: BP 138/69
--- NOTE | 2019-06-23 20:15 | NUR ---
BELLOWS TESTER NOTES NOTED PATIENT TO HAVE SOB AFTER GOING TO THE RESTROOM. PROVIDED PATIENT WITH URINAL AND INSTRUCTED TO USE IT INSTEAD OF WALKING TO THE RESTROOM TO PREVENT SOB. INCREASED NC TO 3LPM. SOB NOTED TO HAVE DECREASED. SATURATION STILL 100%. WILL CONT TO MONITOR PT CLOSELY.
[2019-06-23] MEDS: SIMVASTATIN 20 MG TABLET PO SCH (22:15)
[2019-06-23] MEDS: LATANOPROST EYE DROP 0.005% 2.5 ML BOTTLE EACHEYE SCH (22:15)
[2019-06-24] VITALS: BP 145/85
[2019-06-24 04:00] VITALS: BP 131/70
--- NOTE | 2019-06-24 06:35 | NUR ---
COMMUNITY SERVICES OFFICER CLOSING NOTES PATIENT SLEEPING IN BED, BUT EASY TO AROUSE, A/OX4. NO ACUTE CHANGES THROUGHOUT SHIFT. ON OXYGEN 3L VIA NC, NO S/S OF RESPIRATORY OR CARDIAC DISTRESS NOTED. DENIES ANY PAIN. ON TELE MONITOR SR WITH HR 60'S. IV SITE RIGHT AC #18, FLUSHING, PATENT AND INTACT, S/L. SAFETY MEASURES MAINTAINED; BED LOCKED AND IN LOWEST POSITION, CALL LIGHT WITHIN REACH, SIDE RAILS UP X2. WILL CONT TO MONITOR PT. WILL ENDORSE TO AM RN FOR GARY.
[2019-06-24 06:47] LABS: BASOPHILS % (AUTO) 0.4 % (0.0-2.0); EOSINOPHILS % (AUTO) 0.5 % (0.0-6.0); HEMATOCRIT 26 % (39-51); HEMOGLOBIN 8.7 g/dL (13.5-17.5); LYMPHOCYTES # (AUTO) 1.8 /CMM (0.8-4.8); LYMPHOCYTES % (AUTO) 27.6 % (20.0-44.0); MEAN CORPUSCULAR HGB CONC 33 g/dl (31.0-36.0); MEAN CORPUSCULAR VOLUME 82 fL (80-96); MONOCYTES # (AUTO) 0.7 /CMM (0.1-1.30); MONOCYTES % (AUTO) 10.6 % (2.0-12.0); NEUTROPHILS # (AUTO) 3.9 /CMM (1.8-8.9); NEUTROPHILS % (AUTO) 60.9 % (43.0-81.0); PLATELET COUNT (AUTO) 168 /CMM (150-450); RED BLOOD CELL COUNT(AUTO) 3.24 MIL/uL (4.5-6.0); WHITE BLOOD COUNT (AUTO) 6.4 K/uL (4.3-11.0)
[2019-06-24 06:59] LABS: ALANINE AMINOTRANSFERASE 37 U/L (12-78); ALBUMIN 3.6 g/dL (3.4-5.0); ALKALINE PHOSPHATASE 120 U/L (46-116); ASPARTATE AMINOTRANSFERASE 22 U/L (15-37); BILIRUBIN,TOTAL 1.3 mg/dL (0.2-1.0); CALCIUM, SERUM 8.8 mg/dL (8.5-10.1); CARBON DIOXIDE 26 mmol/L (21-32); CHLORIDE 104 mmol/L (98-107); CHOLESTEROL 122 mg/dL (<200); GLUCOSE 120 mg/dL (74-106); HDL CHOLESTEROL 53 mg/dL (40-60); LDL 63 mg/dL (0-99); MAGNESIUM 2.1 mg/dL (1.8-2.4); POTASSIUM 3.3 mmol/L (3.5-5.1); SODIUM SERUM 143 mmol/L (136-145); TOTAL PROTEIN, SERUM 8.3 g/dL (6.4-8.2); TRIGLYCERIDES 62 mg/dL (30-150); UREA NITROGEN, BLOOD 36 mg/dL (7-18)
--- NOTE | 2019-06-24 07:10 | NUR ---
WEB SPECIALIST OPENING NOTES RECEIVED PT LYING O BED,ALERT/ORIENTED X4.ON TELE HR IS 74 WITH NSR WITH PACEMAKER ON LEFT CHEST WALL.ON 3LPM O2 VIA NC CONTINUOUSLY,NO SOB AND ACUTE DISTRESS NOTED.IV LINE IS ON RIGHT AC G18,SL.SITE IS CLEAN,DRY AND INTACT.NO INFILTRATION NOTED.SAFETY IS MAINTAINED AT ALL TIMES.BED IS IN LOW POSITION AND LOCKED.CALL LIGHT IS WITHIN REACH.WILL CONTINUE TO MONITOR THE PT CLOSELY.
[2019-06-24 08:00] VITALS: BP_SYST 141; BP_DIAS 42; BP_DIAS 72
[2019-06-24] MEDS: CARVEDILOL 3.125 MG TABLET PO SCH ×2 (08:24→16:12)
[2019-06-24] MEDS: ASPIRIN EC 81 MG TABLET.DR PO SCH (08:24)
[2019-06-24] MEDS: TICAGRELOR 90 MG TABLET PO SCH ×2 (08:24→16:11)
[2019-06-24] MEDS: ALLOPURINOL 100 MG TABLET PO SCH (08:24)
[2019-06-24] MEDS: GLIMEPIRIDE 1 MG TABLET PO SCH (08:25)
[2019-06-24] MEDS: LEVOTHYROXINE SODIUM 88 MCG TABLET PO SCH (08:25)
[2019-06-24] MEDS: LINAGLIPTIN 5 MG TABLET PO SCH (08:25)
[2019-06-24] MEDS ORDERED: POTASSIUM CHLORIDE 10 MEQ TABLET.SA PO ONE (10:30)
[2019-06-24] MEDS ORDERED: Levothyroxine Sodium PO (12:35)
[2019-06-24] MEDS ORDERED: ALLO100T25 PO (12:35)
[2019-06-24] MEDS ORDERED: HYDR-3972 PO (12:35)
[2019-06-24] MEDS ORDERED: CARV3.122 PO (12:35)
[2019-06-24] MEDS ORDERED: LINA5TAB PO (12:35)
[2019-06-24] MEDS ORDERED: SIMV-46 PO (12:35)
[2019-06-24] MEDS ORDERED: ACET325T53 PO (12:35)
[2019-06-24] MEDS ORDERED: ASPI-1152 PO (12:35)
[2019-06-24] MEDS ORDERED: TICA90TA PO (12:35)
[2019-06-24] MEDS ORDERED: GLIM1TAB PO (12:35)
--- NOTE | 2019-06-24 12:36 | NUR ---
MS RN NOTES PER FAMILY REQUEST-SON.MR.DAVID MALIN,PT WANTS TO TRANSFER TO [facility] FOR CARDIAC CATHETERIZATION PROCEDURE DR.SAM CONTRERAS(PCP) ORDERED TO DISCHARGE THE PT. PT,CHARGE NURSE AND CASE MANAGEMENT MADE AWARE.
[2019-06-24 16:00] VITALS: BP 130/76
--- NOTE | 2019-06-24 19:02 | NUR ---
MS RN CLOSING NOTES PATIENT IN BED. ALERT AND ORIENTED X4. NO SOB NOR ACUTE DISTRESS NOTED. STILL ON CONT 02 @ 3LPM VIA NC, TOLERATING WELL. VITAL SIGNS STABLE WITH NORMAL SINUS RHYTHM NOTED. IV SITE ON RIGHT AC WITH G #18. INTACT, SITE CLEAN AND DRY. ALL DUE MEDICATIONS GIVEN. CARE RENDERED DURING SHIFT. BED IN LOW POSITION, LOCKED. CALL LIGHT IN REACH. SAFETY ENSURED. WILL ENDORSE TO ONCOMING REPRODUCTIVE ENDOCRINOLOGIST FOR CONTINUITY OF CARE.
--- NOTE | 2019-06-24 19:10 | NUR ---
RN OPENING NOTES: PATIENT IN BED, AWAKE, AND VERBALLY RESPONSIVE. A&OX4. NO RESPIRATORY DISTRESS. NO C/O PAIN AT THIS TIME. (R) AC 18G INTACT, PATENT, AND FLUSHING WELL. SALINE LOCKED. SAFETY PRECAUTIONS IMPLEMENTED. BED IN LOWEST POSITION FOR SAFETY. CALL LIGHT PLACED WITHIN REACH. WILL CONT. TO MONITOR.
[2019-06-24 20:00] VITALS: BP 127/75
[2019-06-24] MEDS: LATANOPROST EYE DROP 0.005% 2.5 ML BOTTLE EACHEYE SCH (21:10)
[2019-06-24] MEDS: SIMVASTATIN 20 MG TABLET PO SCH (21:11)
[2019-06-25 04:00] VITALS: BP 126/64
--- NOTE | 2019-06-25 06:43 | NUR ---
RN CLOSING NOTES: PATIENT IN BED, ASLEEP, BUT EASILY AWAKENED. NO RESPIRATORY DISTRESS. NO C/O CHEST PAIN. (R) AC 18G INTACT, PATENT, AND FLUSHING WELL. SALINE LOCKED. SAFETY PRECAUTIONS IMPLEMENTED. BED IN LOWEST POSITION FOR SAFETY. CALL LIGHT PLACED WITHIN REACH. WILL ENDORSE TO NEXT SHIFT NURSE FOR CONTINUITY OF CARE.
[2019-06-25 07:01] LABS: BASOPHILS % (AUTO) 0.3 % (0.0-2.0); EOSINOPHILS % (AUTO) 1.3 % (0.0-6.0); HEMATOCRIT 26 % (39-51); HEMOGLOBIN 8.5 g/dL (13.5-17.5); LYMPHOCYTES # (AUTO) 1.6 /CMM (0.8-4.8); LYMPHOCYTES % (AUTO) 30.3 % (20.0-44.0); MEAN CORPUSCULAR HGB CONC 33 g/dl (31.0-36.0); MEAN CORPUSCULAR VOLUME 82 fL (80-96); MONOCYTES # (AUTO) 0.5 /CMM (0.1-1.30); MONOCYTES % (AUTO) 9.9 % (2.0-12.0); NEUTROPHILS % (AUTO) 58.2 % (43.0-81.0); PLATELET COUNT (AUTO) 165 /CMM (150-450); RED BLOOD CELL COUNT(AUTO) 3.15 MIL/uL (4.5-6.0); WHITE BLOOD COUNT (AUTO) 5.1 K/uL (4.3-11.0)
[2019-06-25 07:04] LABS: ALANINE AMINOTRANSFERASE 31 U/L (12-78); ALBUMIN 3.3 g/dL (3.4-5.0); ALKALINE PHOSPHATASE 106 U/L (46-116); ASPARTATE AMINOTRANSFERASE 21 U/L (15-37); BILIRUBIN,TOTAL 0.8 mg/dL (0.2-1.0); CALCIUM, SERUM 8.4 mg/dL (8.5-10.1); CARBON DIOXIDE 27 mmol/L (21-32); CHLORIDE 106 mmol/L (98-107); GLUCOSE 92 mg/dL (74-106); MAGNESIUM 2.4 mg/dL (1.8-2.4); PHOSPHORUS 4.3 mg/dL (2.5-4.9); POTASSIUM 3.3 mmol/L (3.5-5.1); SODIUM SERUM 143 mmol/L (136-145); TOTAL PROTEIN, SERUM 7.8 g/dL (6.4-8.2); UREA NITROGEN, BLOOD 45 mg/dL (7-18)
[2019-06-25 08:00] VITALS: BP 127/75
--- NOTE | 2019-06-25 08:00 | NUR ---
MS RN OPENING NOTES RECEIVED PT SITTING UP IN BED W/ HOB KEPT ELEVATED. PT IS A/O X4, AFEBRILE. RESPIRATIONS ARE EVEN AND UNLABORED, NOT IN ANY ACUTE DISTRESS NOTED. PT DENIES ANY PAIN AT THIS TIME, NO C/O SOB, N/V. IV SITE TO RAC INTACT, NO INFILTRATION NOTED. DRESSING KEPT CLEAN AND DRY. SAFETY MEASURES ARE IN PLACE. INSTRUCTED PT TO USE CALL LIGHT WHEN ASSISTANCE IS NEEDED, CALL LIGHT IS LEFT WITHIN REACH. WILL MONITOR THROUGHOUT SHIFT FOR CONTINUITY OF CARE.
[2019-06-25] MEDS: GLIMEPIRIDE 1 MG TABLET PO SCH (08:07)
[2019-06-25] MEDS: ASPIRIN EC 81 MG TABLET.DR PO SCH (08:07)
[2019-06-25] MEDS: ALLOPURINOL 100 MG TABLET PO SCH (08:07)
[2019-06-25] MEDS: TICAGRELOR 90 MG TABLET PO SCH ×2 (08:07→16:32)
[2019-06-25] MEDS: LEVOTHYROXINE SODIUM 88 MCG TABLET PO SCH (08:07)
[2019-06-25] MEDS: LINAGLIPTIN 5 MG TABLET PO SCH (08:07)
[2019-06-25] MEDS: CARVEDILOL 3.125 MG TABLET PO SCH ×2 (08:08→16:32)
[2019-06-25] MEDS ORDERED: POTASSIUM CHLORIDE 10 MEQ TABLET.SA PO ONE (11:00)
[2019-06-25 12:00] VITALS: BP 116/71
--- NOTE | 2019-06-25 14:09 | NUR ---
MS RN NOTES-- PT ABLE TO MAKE NEEDS KNOWN. NEEDS MET AND ANTICIPATED. PT DOES NOT APPEAR TO BE IN ANY ACUTE DISTRESS. SAFETY MEASURES ARE IN PLACE. TWO SONS ARE BEDSIDE. CALL LIGHT IS LEFT WITHIN REACH. WILL CONTINUE TO MONITOR.
[2019-06-25 16:00] VITALS: BP 120/68
--- NOTE | 2019-06-25 18:31 | NUR ---
MS RN CLOSING NOTES ALL DUE MEDS GIVEN, NEEDS MET AND RENDERED. PT IS A/O X4, AFEBRILE. RESPIRATIONS ARE EVEN AND UNLABORED, NOT IN ANY ACUTE DISTRESS NOTED. DENIES ANY PAIN AT THIS TIME, NO C/O SOB, N/V. IV SITE TO RAC INTACT, NO INFILTRATION NOTED DRESSING KEPT CLEAN AND DRY. SAFETY MEASURES ARE IN PLACE. REMINDED PT TO USE CALL LIGHT WHEN ASSISTANCE IS NEEDED, CALL LIGHT IS LEFT WITHIN REACH. WILL ENDORSE TO NEXT SHIFT FOR CONTINUITY OF CARE.
--- NOTE | 2019-06-25 19:15 | NUR ---
MS RN OPENING NOTES RECEIVED PATIENT SITTING UP IN BED, TALKING ON THE PHONE WITH DAUGHTER AT BEDSIDE. ALERT, ORIENTED X 4. BREATHING EVEN AND UNLABORED. NOT IN ANY DISTRESS. NO COMPLAINTS AT THIS TIME. SAFETY MEASURES IN PLACE. CALL LIGHT WITHIN EASY REACH, BED IN LOW, LOCKED POSITION. ENCOURAGED TO CALL FOR ASSISTANCE. WILL CONTINUE TO MONITOR ACCORDINGLY
[2019-06-25 20:00] VITALS: BP 138/76
--- NOTE | 2019-06-25 20:30 | NUR ---
RN NOTES URINE SAMPLE OBTAINED
[2019-06-25] MEDS: SIMVASTATIN 20 MG TABLET PO SCH (21:02)
[2019-06-25] MEDS: LATANOPROST EYE DROP 0.005% 2.5 ML BOTTLE EACHEYE SCH (21:03)
[2019-06-25 21:45] LABS: APPEARANCE,URINE CLEAR (CLEAR); BILIRUBIN,URINE NEGATIVE (NEGATIVE); BLOOD, URINE NEGATIVE Ery/uL (NEGATIVE); COLOR,URINE YELLOW (YELLOW); KETONES,URINE NEGATIVE (NEGATIVE); LEUKOCYTE ESTERASE ,URINE NEGATIVE (NEGATIVE); NITRITE, URINE NEGATIVE (NEGATIVE); PH,URINE 5.5 (5.0-8.0); PROTEIN,URINE NEGATIVE (NEGATIVE); UGLUCOSE NEGATIVE (NEGATIVE); UROBILINOGEN,URINE 0.2 EU/dL (0.2)
[2019-06-25 21:58] LABS: CREATININE, URINE 95.8 MG/DL (30.0-125.0); URINE TOTAL PROTEIN 16.9 mg/dL (0-11.9)
[2019-06-25 22:56] LABS: EOSINOPHIL,URINE None Seen
[2019-06-26 04:00] VITALS: BP 135/82
--- NOTE | 2019-06-26 06:32 | NUR ---
MS RN CLOSING NOTES Patient still sleeping in bed, easily arousable. No significant change in condition overnight. No complaints of pain or discomfort at this time. All cares attended and anticipated. Safety measures in place; call light within reach, bed in lowest locked position. Will endorse GARY to oncoming RN
[2019-06-26 06:55] LABS: BASOPHILS % (AUTO) 0.7 % (0.0-2.0); HEMATOCRIT 26 % (39-51); HEMOGLOBIN 8.6 g/dL (13.5-17.5); LYMPHOCYTES # (AUTO) 1.5 /CMM (0.8-4.8); LYMPHOCYTES % (AUTO) 28.6 % (20.0-44.0); MEAN CORPUSCULAR HGB CONC 33 g/dl (31.0-36.0); MEAN CORPUSCULAR VOLUME 82 fL (80-96); MONOCYTES # (AUTO) 0.4 /CMM (0.1-1.30); MONOCYTES % (AUTO) 8.3 % (2.0-12.0); NEUTROPHILS # (AUTO) 3.3 /CMM (1.8-8.9); NEUTROPHILS % (AUTO) 61.4 % (43.0-81.0); PLATELET COUNT (AUTO) 173 /CMM (150-450); RED BLOOD CELL COUNT(AUTO) 3.19 MIL/uL (4.5-6.0); WHITE BLOOD COUNT (AUTO) 5.4 K/uL (4.3-11.0)
[2019-06-26 07:09] LABS: ALANINE AMINOTRANSFERASE 38 U/L (12-78); ALBUMIN 3.2 g/dL (3.4-5.0); ALKALINE PHOSPHATASE 109 U/L (46-116); ASPARTATE AMINOTRANSFERASE 31 U/L (15-37); BILIRUBIN,TOTAL 0.6 mg/dL (0.2-1.0); CALCIUM, SERUM 8.5 mg/dL (8.5-10.1); CARBON DIOXIDE 25 mmol/L (21-32); CHLORIDE 106 mmol/L (98-107); CREATININE 1.7 mg/dL (0.6-1.3); GLUCOSE 94 mg/dL (74-106); MAGNESIUM 2.5 mg/dL (1.8-2.4); PHOSPHORUS 3.9 mg/dL (2.5-4.9); POTASSIUM 3.6 mmol/L (3.5-5.1); SODIUM SERUM 142 mmol/L (136-145); TOTAL PROTEIN, SERUM 7.7 g/dL (6.4-8.2); UREA NITROGEN, BLOOD 37 mg/dL (7-18)
[2019-06-26 08:00] VITALS: BP 147/73
[2019-06-26] MEDS: ALLOPURINOL 100 MG TABLET PO SCH (08:20)
[2019-06-26] MEDS: GLIMEPIRIDE 1 MG TABLET PO SCH (08:22)
[2019-06-26] MEDS: ASPIRIN EC 81 MG TABLET.DR PO SCH (08:22)
[2019-06-26] MEDS: LINAGLIPTIN 5 MG TABLET PO SCH (08:22)
[2019-06-26 08:23] VITALS: BP 147/73
[2019-06-26] MEDS: TICAGRELOR 90 MG TABLET PO SCH (08:23)
[2019-06-26] MEDS: LEVOTHYROXINE SODIUM 88 MCG TABLET PO SCH (08:23)
[2019-06-26] MEDS: CARVEDILOL 3.125 MG TABLET PO SCH (08:23)
--- NOTE | 2019-06-26 15:30 | NUR ---
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 refused follow up appointment from [facility]. Exit care done, discharge instructions provided, prescription for medication given, medication reconciliation given, papers signed, belongings list signed and copies left in chart. iv site removed, and id band removed, pt refused vaccination, stating "I will follow up with my primary MD." picture of skin taken, and placed in the chart. pt wheeled to the taxi.
== END 2019-06-26 15:33 | disposition home or self-care (01) | DRG 280 ==
LOC: ER 03:54 → TELE1 06:32 → MEDSG1 06-24 11:53
PROVIDERS: ADMIT Nurse Practitioner Acute Care; ATTEND Nurse Practitioner Acute Care
DX: I21.4 Non-ST elevation (NSTEMI) myocardial infarction (principal); I50.23 Acute on chronic systolic (congestive) heart failure; J96.01 Acute respiratory failure with hypoxia; N17.9 Acute kidney failure, unspecified; I13.2 Hypertensive heart and chronic kidney disease with heart failure and with stage 5 chronic kidney disease, or end stage renal disease; D63.8 Anemia in other chronic diseases classified elsewhere; E78.5 Hyperlipidemia, unspecified; I25.10 Atherosclerotic heart disease of native coronary artery without angina pectoris; E11.22 Type 2 diabetes mellitus with diabetic chronic kidney disease; E03.9 Hypothyroidism, unspecified; Z79.84 Long term (current) use of oral hypoglycemic drugs; H40.9 Unspecified glaucoma; Z79.02 Long term (current) use of antithrombotics/antiplatelets; Z95.5 Presence of coronary angioplasty implant and graft; Z95.2 Presence of prosthetic heart valve; Z79.899 Other long term (current) drug therapy; Z79.890 Hormone replacement therapy; Z79.82 Long term (current) use of aspirin; N18.3 Chronic kidney disease, stage 3 (moderate)
CPT/HCPCS: 36415; 71045-TC; 76770-TC; 80048-TC; 80053-TC; 80061-TC; 80076-TC; 81000-TC; 82570-TC; 83735-TC; 83880; 84100-TC; 84155-TC; 84300-TC; 84484-TC; 85025-TC; 85730-TC; 87081-TC; 93307-TC; G0378; J1940